=== PATIENT | male | born 1945 | race Caucasian/White ===

== ENCOUNTER 2016-04-05 14:37 | Inpatient (IN) | payer OTHER ==
[~2016-04-05] VITALS: Ht 185.4 cm; Wt 69.6 kg
[2016-04-05] MEDS ORDERED: SODIUM CHLORIDE 0.9% 1000ML 250 ML IV STA (15:10)
[2016-04-05] MEDS ORDERED: SODIUM CHLORIDE 0.9% 1000ML 1,000 ML IV STA ×2 (15:10→15:54)
[2016-04-05] MEDS ORDERED: FLM4 PO (15:14)
[2016-04-05] MEDS ORDERED: TRAM-10 PO (15:14)
[2016-04-05] MEDS ORDERED: DABI1CAP PO (15:14)
[2016-04-05] MEDS ORDERED: DOCU-94 PO (15:16)
--- NOTE | 2016-04-05 15:45 | DIAGNOSTIC IMAGING REPORT ---
CHEST ONE VIEW PORTABLE CLINICAL HISTORY: Chest pain. Confusion. Cancer. COMPARISON STUDY: Chest CT March 22, 2016. FINDINGS: An anterior cervical spine fusion is incidentally noted. The dominant right upper lobe mass, measuring approximately 8.9 cm, is similar to CT of March 22, 2016. Associated rib involvement is better depicted on that exam. A 4.2 cm right lower lobe mass is also better depicted on prior exam. Mild left basilar opacity favors atelectasis. There is no consolidation to suggest pneumonia. There is no pneumothorax or evidence of pulmonary edema. Cardiomediastinal silhouette is stable. Mild mediastinal widening as well as right hilar fullness is due to lymphadenopathy which is better depicted on CT. IMPRESSION: 1. No significant change in the right upper and lower lobe lung masses since CT of March 22, 2016. These are highly suggestive of lung cancer. 2. No change in mediastinal widening and right hilar fullness due to lymphadenopathy, better depicted on prior CT. Electronically signed by: Chris Pimentel M.D. 04/05/2016 3:43 PM
[2016-04-05 15:49] LABS: BASO % 0.1 %; BASO ABS # 0.02 K/uL (0-0.2); EOS % 1.9 %; HEMATOCRIT 26.7 % (42-52); IG% 0.3 %; LYMPH % 6.6 %; LYMPH ABS # 1.17 K/uL (1.2-3.4); MEAN CELL VOLUME 92.4 fL (80-100); MEAN CORPUSCULAR HEMOGLOBIN 29.4 pg (25-34); MEAN CORPUSCULAR HGB CONC 31.8 g/dl (32-36); MEAN PLATELET VOLUME 9.7 fL (7.4-10.4); MONO % 7.2 %; NEUT % 83.9 %; PLATELET COUNT 373 K/uL (130-400); RED BLOOD COUNT 2.89 M/uL (4.7-6.1); WHITE BLOOD COUNT 17.73 K/uL (4.8-10.8)
[2016-04-05 15:56] LABS: INR 1.3 (0.9-1.1); PROTHROMBIN TIME (PATIENT) 13.8 SECONDS (9.0-12.0)
[2016-04-05 16:02] LABS: POINT OF CARE TROPONIN I 0.02 ng/ml (0-0.045)
[2016-04-05 16:06] LABS: CALCIUM 8.8 mg/dl (8.5-10.1); CREATININE 1.2 mg/dl (0.60-1.40); POTASSIUM 3.6 mmol/L (3.5-5.1)
[2016-04-05 16:16] LABS: CKMB/CK RATIO 2.2 (0-3.0); THYROID STIMULATING HORMONE 2.02 uIu/ml (0.300-4.500)
[2016-04-05 16:17] LABS: COMPLETE YES; HYPOCHROMIA PRESENT; STOMATOCYTE 1+
[2016-04-05] MEDS ORDERED: ONDANSETRON INJ 2 MG/ML 2 ML VIAL IV STA (16:45)
[2016-04-05] MEDS ORDERED: MoRPHine SULFATE 2 MG/ML CARP IV STA (16:45)
[2016-04-05] MEDS ORDERED: OPTIRAY 320 IV PRN (16:45)
--- NOTE | 2016-04-05 18:19 | DIAGNOSTIC IMAGING REPORT ---
CHEST CTA for PULMONARY ARTERIES CT DOSE: 281.10 mGy.cm HISTORY: Chest pain dyspnea TECHNIQUE: Multiaxial CT images of the chest were performed following the intravenous administration of contrast to evaluate the pulmonary arteries. Maximal intensity projection images were also obtained. COMPARISON STUDY: 03/22/2016 FINDINGS: Study is considered negative for pulmonary embolus. Pulmonary vascular enhances uniformly. The right hemithoracic and right hilar masses produces described are again noted. These are perhaps minimally increased in size compared to the prior exam. Invasive characteristics to the lateral right chest wall are noted in approximately progressive as well. Destructive changes of the ribs are slightly progressive. Left hemithorax remains generally clear. Hepatic metastatic deposit is again noted. IMPRESSION: 1. Study is negative for pulmonary embolus. 2. Right hemithoracic masses with pleural invasive changes laterally. 3. All findings of the right hemithorax are slightly progressive compared to the prior study. 4. Mediastinal and hilar adenopathy slightly progressive. 5. Hepatic metastatic change as has been previously noted. Electronically signed by: Mihir Holloway M.D. 04/05/2016 6:17 PM
[2016-04-05] MEDS ORDERED: METOPROLOL TARTRATE 1 MG/ML VIAL IV STA (18:43)
[2016-04-05] MEDS ORDERED: NITROGLYCERIN 0.4 MG SL PER TAB CHARGE SL PRN (18:45)
[2016-04-05] MEDS ORDERED: ONDANSETRON INJ 2 MG/ML 2 ML VIAL IV PRN (18:45)
[2016-04-05] MEDS ORDERED: LEVALBUTEROL/IPRATROPIUM NEB INH PRN (18:45)
[2016-04-05] MEDS ORDERED: ACETAMINOPHEN IV 100 ML IV PRN (18:45)
[2016-04-05] MEDS ORDERED: LEVALBUTEROL 1.25MG/0.5ML NEB INH PRN (19:15)
[2016-04-05] MEDS ORDERED: IPRATROPIUM BROMIDE NEB SOLN 0.02% 2.5 ML VIAL INH PRN (19:15)
[2016-04-05 20:22] VITALS: BP 125/77; PULSE 110; TEMP 36.6; O2SAT 93; Ht 185.4 cm; Wt 69.6 kg
--- NOTE | 2016-04-05 20:35 | EMERGENCY ROOM VISIT NOTE ---
History Report prepared by Vandana: Tiffanie Harley Under the Supervision of: Dr. Dennis Acosta M.D. First contact with patient: 14:59 Chief Complaint: CHEST PAIN Stated Complaint: CANCER,SOB,CONFUSION,CHEST PAIN Nursing Triage Summary: pt c/o trouble hearing and confused started 1 week ago. scheduled for lung biopsy tomorrow here. sob and chest pain weakness in leg unable to walk trouble urinating. History of Present Illness The patient is a 70 year old male who presents to the Emergency Room with complaints of intermittent chest pain for the past 1-2 weeks. He rates his pain as a 7/10. He is feeling more short of breath than usual. He feels like his heart is racing. The patient also notes a cough. He has been prescribed tramadol for pain but family does not think that he is taking it on a regular basis. Family states that today the patient was much more confused. He was having a hard time urinating and they note decreased fluid intake. The patient has a personal history of atrial fibrillation and a chest mass. He is scheduled for a biopsy of this mass tomorrow. No trauma or injury. Source of History: patient, family Onset: 1-2 weeks ago Position: chest Symptom Intensity: 7/10 Quality: other (racing) Timing: intermittent Associated Symptoms: + SOB, + cough, + urinary symptoms Note: Family notes confusion and decreased fluid intake. Review of Systems See HPI for pertinent positives & negatives. A total of 10 systems reviewed and were otherwise negative. Past Medical & Surgical Medical Problems: (1) Atrial fibrillation (2) DVT (deep venous thrombosis) (3) Hypertension (4) Metastatic lung carcinoma (5) Multifocal atrial tachycardia (6) Solitary pulmonary nodule Old medical records were reviewed. Nurse's notes were reviewed and I agree with. He does have a history of some sort of arrhythmia that was ablated He is on Pradaxa but has been holding it as he has a biopsy scheduled with Dr. Hassan tomorrow Family History FHx: cancer Social History Smoking Status: Former Smoker Alcohol Use: none Marital Status: Housing Status: lives with significant other Occupation Status: retired Current/Historical Medications Scheduled Dabigatran Etexilate Mesylate (Pradaxa), 75 MG PO BID Tamsulosin HCl (Tamsulosin HCl), 0.4 MG PO QAM Scheduled PRN Docusate Sodium (Colace), 1 CAP PO DIRECTED PRN for PRN Tramadol (Ultram), 50 MG PO Q8H PRN for Pain Allergies Coded Allergies: No Known Allergies (Unverified , 04/05/16) Physical Exam Vital Signs Date Time Temp Pulse Resp B/P Pulse Ox O2 Delivery O2 Flow Rate FiO2 04/05/16 19:02 98 30 92 04/05/16 19:00 128/90 04/05/16 19:00 143 122/88 04/05/16 18:58 122/88 04/05/16 18:57 136 26 04/05/16 18:52 138 23 04/05/16 18:47 140 24 04/05/16 18:46 122/80 04/05/16 17:32 135 04/05/16 17:27 143 04/05/16 17:22 142 04/05/16 17:17 169 18 04/05/16 17:12 140 24 04/05/16 17:07 136 29 04/05/16 17:02 142 19 04/05/16 16:57 136 21 04/05/16 16:52 143 22 04/05/16 16:47 131 15 04/05/16 16:42 129 30 04/05/16 16:37 143 41 04/05/16 16:32 142 29 04/05/16 16:29 149/118 04/05/16 16:27 129 45 04/05/16 16:22 139 25 98 04/05/16 16:17 145 22 95 04/05/16 16:17 36.9 137 23 112/82 97 Room Air 04/05/16 16:12 131 25 99 04/05/16 16:07 130 30 88 04/05/16 16:02 137 23 97 Room Air 04/05/16 15:59 112/82 04/05/16 15:57 131 43 90 Room Air 04/05/16 15:52 134 20 93 Room Air 04/05/16 15:47 125 27 91 Room Air 04/05/16 15:42 125 33 97 04/05/16 15:37 134 32 98 04/05/16 15:32 140 31 96 04/05/16 15:29 138/82 04/05/16 15:27 103 20 92 04/05/16 15:22 128 24 97 04/05/16 15:17 125 24 98 04/05/16 15:12 133 23 96 04/05/16 15:10 142 04/05/16 15:08 99 Room Air 04/05/16 15:07 137 28 98 04/05/16 15:01 142/81 04/05/16 14:46 36.9 82 18 116/70 99 Room Air Physical Exam General: Well developed well nourished chronically ill appearing older male in no acute distress, breathing comfortably on room air. Normal speech, hard of hearing. HEENT: Normal cephalic atraumatic. Pupils are equal round and reactive to light. Sclerae anicteric.. Extraocular movements are intact. Oropharynx is pink with moist mucous membranes. No swelling of the mouth lips or tongue. Neck: Supple with a midline trachea. No meningeal signs or stiffness, no JVD or bruits. No Stridor. Chest: Wheezes in the bases bilaterally. No rhonchi. Mildly tachypneic. Heart: Irregularly irregular in the 130s. Abdomen: Soft nontender, nondistended without rebound guarding or rigidity. Extremities: No cyanosis clubbing or edema. No calf tenderness or assymetry Spine/Back. Non tender to palpation. No CVA tenderness Skin: Good turgor without rashes. Neurologic exam: Cranial nerves two through 12 are intact. Motor and sensation are intact and symmetrical throughout. Medical Decision & Procedures ER Provider Diagnostic Interpretation: Radiology results as stated below per my review and radiologist interpretation: CHEST ONE VIEW PORTABLE CLINICAL HISTORY: Chest pain. Confusion. Cancer. COMPARISON STUDY: Chest CT March 22, 2016. FINDINGS: An anterior cervical spine fusion is incidentally noted. The dominant right upper lobe mass, measuring approximately 8.9 cm, is similar to CT of March 22, 2016. Associated rib involvement is better depicted on that exam. A 4.2 cm right lower lobe mass is also better depicted on prior exam. Mild left basilar opacity favors atelectasis. There is no consolidation to suggest pneumonia. There is no pneumothorax or evidence of pulmonary edema. Cardiomediastinal silhouette is stable. Mild mediastinal widening as well as right hilar fullness is due to lymphadenopathy which is better depicted on CT. IMPRESSION: 1. No significant change in the right upper and lower lobe lung masses since CT of March 22, 2016. These are highly suggestive of lung cancer. 2. No change in mediastinal widening and right hilar fullness due to lymphadenopathy, better depicted on prior CT. Electronically signed by: Chris Pimentel M.D. 04/05/2016 3:43 PM CHEST CTA for PULMONARY ARTERIES CT DOSE: 281.10 mGy.cm HISTORY: Chest pain dyspnea TECHNIQUE: Multiaxial CT images of the chest were performed following the intravenous administration of contrast to evaluate the pulmonary arteries. Maximal intensity projection images were also obtained. COMPARISON STUDY: 03/22/2016 FINDINGS: Study is considered negative for pulmonary embolus. Pulmonary vascular enhances uniformly. The right hemithoracic and right hilar masses produces described are again noted. These are perhaps minimally increased in size compared to the prior exam. Invasive characteristics to the lateral right chest wall are noted in approximately progressive as well. Destructive changes of the ribs are slightly progressive. Left hemithorax remains generally clear. Hepatic metastatic deposit is again noted. IMPRESSION: 1. Study is negative for pulmonary embolus. 2. Right hemithoracic masses with pleural invasive changes laterally. 3. All findings of the right hemithorax are slightly progressive compared to the prior study. 4. Mediastinal and hilar adenopathy slightly progressive. 5. Hepatic metastatic change as has been previously noted. Electronically signed by: Mihir Holloway M.D. 04/05/2016 6:17 PM Laboratory Results 04/05/16 15:35 Red Blood Count 2.89, Mean Corpuscular Volume 92.4, Mean Corpuscular Hemoglobin 29.4, Mean Corpuscular Hemoglobin Concent 31.8, Mean Platelet Volume 9.7, Neutrophils (%) (Auto) 83.9, Lymphocytes (%) (Auto) 6.6, Monocytes (%) (Auto) 7.2, Eosinophils (%) (Auto) 1.9, Basophils (%) (Auto) 0.1, Neutrophils # (Auto) 14.87, Lymphocytes # (Auto) 1.17, Monocytes # (Auto) 1.28, Eosinophils # (Auto) 0.34, Basophils # (Auto) 0.02 04/05/16 15:35 Test 04/05/16 15:35 04/05/16 15:44 White Blood Count 17.73 K/uL (4.8-10.8) Red Blood Count 2.89 M/uL (4.7-6.1) Hemoglobin 8.5 g/dL (14.0-18.0) Hematocrit 26.7 % (42-52) Mean Corpuscular Volume 92.4 fL (80-100) Mean Corpuscular Hemoglobin 29.4 pg (25-34) Mean Corpuscular Hemoglobin Concent 31.8 g/dl (32-36) Platelet Count 373 K/uL (130-400) Mean Platelet Volume 9.7 fL (7.4-10.4) Neutrophils (%) (Auto) 83.9 % Lymphocytes (%) (Auto) 6.6 % Monocytes (%) (Auto) 7.2 % Eosinophils (%) (Auto) 1.9 % Basophils (%) (Auto) 0.1 % Neutrophils # (Auto) 14.87 K/uL (1.4-6.5) Lymphocytes # (Auto) 1.17 K/uL (1.2-3.4) Monocytes # (Auto) 1.28 K/uL (0.11-0.59) Eosinophils # (Auto) 0.34 K/uL (0-0.5) Basophils # (Auto) 0.02 K/uL (0-0.2) RDW Standard Deviation 53.6 fL (36.4-46.3) RDW Coefficient of Variation 15.9 % (11.5-14.5) Immature Granulocyte % (Auto) 0.3 % Immature Granulocyte # (Auto) 0.05 K/uL (0.00-0.02) Hypochromasia PRESENT Stomatocytes 1+ Prothrombin Time 13.8 SECONDS (9.0-12.0) Prothromb Time International Ratio 1.3 (0.9-1.1) Activated Partial Thromboplast Time 26.4 SECONDS (21.0-31.0) Partial Thromboplastin Ratio 1.0 Anion Gap 10.0 mmol/L (3-11) Est Creatinine Clear Calc Drug Dose 59.1 ml/min Estimated GFR () 70.6 Estimated GFR (Non- 60.9 BUN/Creatinine Ratio 18.0 (10-20) Calcium Level 8.8 mg/dl (8.5-10.1) Total Creatine Kinase 92 U/L (39-308) Creatine Kinase MB 2.0 ng/ml (0.5-3.6) Creatine Kinase MB Ratio 2.2 (0-3.0) Thyroid Stimulating Hormone (TSH) 2.020 uIu/ml (0.300-4.500) Bedside Troponin I 0.020 ng/ml (0-0.045) DT-Ehl-R-Type Natriuretic Peptide 6809 pg/ml (0-900) Laboratory studies as stated above per my review. Medications Administered Medications (Trade) Dose Ordered Sig/Juan Alberto Route Start Time Stop Time Status Last Admin Dose Admin Sodium Chloride 250 ml @ 999 mls/hr Q16M STAT IV 04/05/16 15:10 04/05/16 15:25 DC 04/05/16 15:52 999 MLS/HR Sodium Chloride 1,000 ml @ 100 mls/hr Q10H STAT IV 04/05/16 15:10 04/05/16 20:05 DC 04/05/16 15:52 100 MLS/HR Sodium Chloride (Nss 1000ml) 1,000 ml @ 999 mls/hr Q1H1M STAT IV 04/05/16 15:54 04/05/16 16:54 DC 04/05/16 15:58 999 MLS/HR Ondansetron HCl (Zofran Inj) 4 mg NOW STAT IV 04/05/16 16:45 04/05/16 16:47 DC 04/05/16 16:56 4 MG Morphine Sulfate (MoRPHine SULFATE INJ) 2 mg NOW STAT IV 04/05/16 16:45 04/05/16 16:47 DC 04/05/16 16:56 2 MG Metoprolol Tartrate (Lopressor Iv) 5 mg NOW STAT IV 04/05/16 18:43 04/05/16 18:44 DC 04/05/16 19:00 5 MG ECG Indication: chest pain Rate (beats per minute): 146 Rhythm: atrial fibrillation (with RVR) Findings: nonspecific-ST abn, PVC (occasional) Comparison ECG Date: no prior available ED Course 1459: Past medical records reviewed. The patient was evaluated in room B11A, and a complete history and physical examination were performed. 1510: NSS 1000 ml @ 100 mls/hr IV, NSS 250 ml @ 999 mls/hr IV 1554: NSS 1000 ml @ 999 mls/hr IV 1556: I reassessed the patient at this time. He is doing well. 1624: I reevaluated the patient. He is doing well and his heart rate seems to be coming down. 164: I reassessed the patient at this time. He is still having some pain. 164: Morphine sulfate 2 mg IV, Zofran 4 mg IV 174: I reevaluated the patient and updated him and his family on the treatment plan. 181: The patient is resting comfortably. 183: I reassessed the patient at this time. I discussed the results and treatment plan with the patient and his family. I answered all pertaining questions that they had. They expressed understanding and verbalized agreement. 184: I spoke with Dr. Winters. We discussed the patients results and treatment plan. The patient will be evaluated by the [facility] for further management. 1842: Lopressor 5 mg IV 1931: I reassessed the patient. He is resting comfortably and feeling better after receiving his Lopressor. Medical Decision Differential diagnoses includes atrial fibrillation, CHF, dehydration, pulmonary process. This patient comes in as described above. He was placed in room B 11. Here for treatment and evaluation of shortness of breath and chest pain. He does have a history of aggressive lung cancer that is metastatic. He is scheduled for abiopsy tomorrow. He is non-hypoxemic initially is tachycardic. He does look a little bit dry. He's also had some urinary symptoms. IV access established and he was hydrated with a 1 L IV normal saline bolus. Unfortunately, there are very limited records here. I do not know if he is in A. fib at baseline. His EKG does appear to be A. fib, there are some nonspecific ST abnormalities. His troponin is negative chest x-ray shows masses consistent with cancer but no CHF. He was given IV morphine and IV Zofran for pain as he is some back pain with moving. I did a CAT scan to make sure he has no PE and has no evidence of PE. His heart rate seemed be coming down in the 120s to 130s, however with to being persistently elevated, I did give him Lopressor 5 mg IV this came down to low 100s any seemed more comfortably as well. He also seemed having trouble urinating and I offered to place a Queen catheter but he declined and was able to urinate. His white count is elevated and he's anemic at 9. He has nothing else to suggest infection or sepsis at this point. I think is more related to his underlying lung process. I do think he needs to be admitted for hydration, cardiac evaluation, rate control and further treatment and evaluation. I did consult Dr. Smith, who saw him in the ER and will admit him for these measures. Consults Time Called: 1831 Consulting Physician: Dr. Winters Returned Call: [phone] Winters. We discussed the patients results and treatment plan. The patient will be evaluated by the [facility] for further management. Impression Primary Impression: Rapid atrial fibrillation Additional Impressions: Dehydration, Lung cancer Scribe Attestation The scribe's documentation has been prepared under my direction and personally reviewed by me in its entirety. I confirm that the note above accurately reflects all work, treatment, procedures, and medical decision making performed by me. Departure Information Dispostion Being Evaluated By Hospitalist Nico Luke PA-C (PCP) Patient Instructions A Signature Page, My [facility]
--- NOTE | 2016-04-05 20:46 | History and Physical ---
History & Physical Date & Time of Service: Apr 05, 2016 at 20:24 Chief Complaint: Metastatic Lung Carcinoma, Multifocal Atrial Primary Care Physician: Nico Peres PA-C History of Present Illness Source: patient, family Past Medical/Surgical History Medical Problems: (1) Atrial fibrillation Status: Chronic (2) DVT (deep venous thrombosis) Status: Resolved (3) Hypertension Status: Chronic (4) Solitary pulmonary nodule Status: Chronic Family History FHx: cancer Social History Smoking Status: Former Smoker Smokeless Tobacco Use: No Alcohol Use: none Drug Use: none Housing status: lives with family Occupational Status: retired Multi-Drug Resistant Organisms History of MDRO: No Allergies Coded Allergies: No Known Allergies (Unverified , 04/05/16) Home Medications Scheduled Dabigatran Etexilate Mesylate (Pradaxa), 75 MG PO BID Tamsulosin HCl (Tamsulosin HCl), 0.4 MG PO QAM Scheduled PRN Docusate Sodium (Colace), 1 CAP PO DIRECTED PRN for PRN Tramadol (Ultram), 50 MG PO Q8H PRN for Pain Review of Systems The patient denies chest pain, palpitations, lower extremity swelling, vision change, hearing change, sore throat, fevers, chills, sweats, weight change, nausea, vomiting, abdominal pain, pelvic pain, blood in urine or stool, dysuria , urinary frequency or urgency, headache, rash, abnormal bruising or bleeding, imbalance, focal weakness, back or neck pain, night sweats, or allergy symptoms. The review of systems is otherwise negative other than for that already noted above, and at least 10 systems have been reviewed. Physical Exam Vital Signs Date Time Temp Pulse Resp B/P Pulse Ox O2 Delivery O2 Flow Rate FiO2 04/05/16 19:40 36.9 107 30 111/69 96 04/05/16 19:12 107 30 04/05/16 19:10 102 04/05/16 19:09 36.9 109 22 111/69 96 Room Air 04/05/16 19:07 109 41 95 04/05/16 19:06 111/69 04/05/16 19:04 119/70 04/05/16 19:02 98 30 92 04/05/16 19:00 128/90 04/05/16 19:00 143 122/88 04/05/16 18:58 122/88 04/05/16 18:57 136 26 04/05/16 18:52 138 23 04/05/16 18:47 140 24 04/05/16 18:46 122/80 04/05/16 17:32 135 04/05/16 17:27 143 04/05/16 17:22 142 04/05/16 17:17 169 18 04/05/16 17:12 140 24 04/05/16 17:07 136 29 04/05/16 17:02 142 19 04/05/16 16:57 136 21 04/05/16 16:52 143 22 04/05/16 16:47 131 15 04/05/16 16:42 129 30 04/05/16 16:37 143 41 04/05/16 16:32 142 29 04/05/16 16:29 149/118 04/05/16 16:27 129 45 04/05/16 16:22 139 25 98 04/05/16 16:17 145 22 95 04/05/16 16:17 36.9 137 23 112/82 97 Room Air 04/05/16 16:12 131 25 99 04/05/16 16:07 130 30 88 04/05/16 16:02 137 23 97 Room Air 04/05/16 15:59 112/82 04/05/16 15:57 131 43 90 Room Air 04/05/16 15:52 134 20 93 Room Air 04/05/16 15:47 125 27 91 Room Air 04/05/16 15:42 125 33 97 04/05/16 15:37 134 32 98 04/05/16 15:32 140 31 96 04/05/16 15:29 138/82 04/05/16 15:27 103 20 92 04/05/16 15:22 128 24 97 04/05/16 15:17 125 24 98 04/05/16 15:12 133 23 96 04/05/16 15:10 142 04/05/16 15:08 99 Room Air 04/05/16 15:07 137 28 98 04/05/16 15:01 142/81 04/05/16 14:46 36.9 82 18 116/70 99 Room Air The patient is awake, appears chronically ill, lying in bed and in mild to moderate respiratory distress. HEENT--PERRL, EOMI, mucous membranes and oropharynx dry. Neck--supple, no JVD or bruits, thyroid normal, trachea midline, no adenopathy. Heart--tachycardic, regularly irregular, frequent extra beats, no murmurs, rubs or gallops. Lungs--decreased breath sounds throughout, rhonchi and wheezes bilaterally, mild to moderate respiratory distress, no accessory muscle use. Abdomen--normal bowel sounds and soft, nontender and nondistended, no hernias or masses, no organomegaly. Extremities--no cyanosis, or clubbing. There is bilaterally 1+ pitting Edema. There are good distal pulses b/l. Dermatologic--normal skin turgor, normal color, warm and dry, no abnormal lymph nodes, no rash. Neurologic--cranial nerves II through XII grossly intact. Psychiatric--normal affect. Diagnostics Laboratory Results Results Past 24 Hours Test 04/05/16 15:35 04/05/16 15:44 Range/Units White Blood Count 17.73 4.8-10.8 K/uL Red Blood Count 2.89 4.7-6.1 M/uL Hemoglobin 8.5 14.0-18.0 g/dL Hematocrit 26.7 42-52 % Mean Corpuscular Volume 92.4 80-100 fL Mean Corpuscular Hemoglobin 29.4 25-34 pg Mean Corpuscular Hemoglobin Concent 31.8 32-36 g/dl Platelet Count 373 130-400 K/uL Mean Platelet Volume 9.7 7.4-10.4 fL Neutrophils (%) (Auto) 83.9 % Lymphocytes (%) (Auto) 6.6 % Monocytes (%) (Auto) 7.2 % Eosinophils (%) (Auto) 1.9 % Basophils (%) (Auto) 0.1 % Neutrophils # (Auto) 14.87 1.4-6.5 K/uL Lymphocytes # (Auto) 1.17 1.2-3.4 K/uL Monocytes # (Auto) 1.28 0.11-0.59 K/uL Eosinophils # (Auto) 0.34 0-0.5 K/uL Basophils # (Auto) 0.02 0-0.2 K/uL RDW Standard Deviation 53.6 36.4-46.3 fL RDW Coefficient of Variation 15.9 11.5-14.5 % Immature Granulocyte % (Auto) 0.3 % Immature Granulocyte # (Auto) 0.05 0.00-0.02 K/uL Hypochromasia PRESENT Stomatocytes 1+ Prothrombin Time 13.8 9.0-12.0 SECONDS Prothromb Time International Ratio 1.3 0.9-1.1 Activated Partial Thromboplast Time 26.4 21.0-31.0 SECONDS Partial Thromboplastin Ratio 1.0 Sodium Level 137 136-145 mmol/L Potassium Level 3.6 3.5-5.1 mmol/L Chloride Level 98 98-107 mmol/L Carbon Dioxide Level 29 21-32 mmol/L Anion Gap 10.0 3-11 mmol/L Blood Urea Nitrogen 22 7-18 mg/dl Creatinine 1.20 0.60-1.40 mg/dl Est Creatinine Clear Calc Drug Dose 59.1 ml/min Estimated GFR () 70.6 Estimated GFR (Non- 60.9 BUN/Creatinine Ratio 18.0 10-20 Random Glucose 99 70-99 mg/dl Calcium Level 8.8 8.5-10.1 mg/dl Total Creatine Kinase 92 39-308 U/L Creatine Kinase MB 2.0 0.5-3.6 ng/ml Creatine Kinase MB Ratio 2.2 0-3.0 Thyroid Stimulating Hormone (TSH) 2.020 0.300-4.500 uIu/ml Bedside Troponin I 0.020 0-0.045 ng/ml IB-Jfl-P-Type Natriuretic Peptide 6809 0-900 pg/ml Microbiology Results 04/05/16 Blood Culture, Received Pending 04/05/16 Blood Culture, Received Pending Diagnostic Radiology Patient Name: ANDREW NOLEN Unit Number: [id number] Dictated: 04/05/161538 Transcribed: 04/05/161538 JA Printed Date/Time: [~ rep prt dt]/[~ rep prt tm] [~ rep ct labl] - [~ rep ct ivnm] [facility] [place] [place] [address] Dictated: 04/05/161538 Transcribed: 04/05/161538 JA Printed Date/Time: [~ rep prt dt]/[~ rep prt tm] [~ rep ct labl] - [~ rep ct ivnm] CHEST ONE VIEW PORTABLE CLINICAL HISTORY: Chest pain. Confusion. Cancer. COMPARISON STUDY: Chest CT March 22, 2016. FINDINGS: An anterior cervical spine fusion is incidentally noted. The dominant right upper lobe mass, measuring approximately 8.9 cm, is similar to CT of March 22, 2016. Associated rib involvement is better depicted on that exam. A 4.2 cm right lower lobe mass is also better depicted on prior exam. Mild left basilar opacity favors atelectasis. There is no consolidation to suggest pneumonia. There is no pneumothorax or evidence of pulmonary edema. Cardiomediastinal silhouette is stable. Mild mediastinal widening as well as right hilar fullness is due to lymphadenopathy which is better depicted on CT. IMPRESSION: 1. No significant change in the right upper and lower lobe lung masses since CT of March 22, 2016. These are highly suggestive of lung cancer. 2. No change in mediastinal widening and right hilar fullness due to lymphadenopathy, better depicted on prior CT. Electronically signed by: Chris Pimentel M.D. 04/05/2016 3:43 PM The status of this report is Signed. Draft = Not yet reviewed or approved by Radiologist. Signed = Reviewed and approved by Radiologist. <AttendingPhy></AttendingPhy> <FamilyPhy>Nico Peres PA-C</FamilyPhy> < PrimaryPhy>Nico Peres PA-C</PrimaryPhy> <UnitNumber>[id number]</ UnitNumber> <VisitNumber>[id number]</VisitNumber> <PatientName>ANDREW NOLEN</PatientName> <DateOfBirth>1945</DateOfBirth> <Location>[facility]</ Location> <ServiceDate>04/05/16</ServiceDate> <MNE>ESINDI</MNE> <OrderingPhy> Dennis Acosta M.D.</OrderingPhy> <OrderingPhyMNE>f rep ord dr carbajal</ OrderingPhyMNE> <DictatingPhyMNE>f rep dict dr carbajal</DictatingPhyMNE> <CCListMNE> f rep ct shruthie</CCListMNE> <AdmittingPhyMNE>f pt admit dr carbajal</AdmittingPhyMNE> < AttendingPhyMNE>f pt attend dr carbajal</AttendingPhyMNE> <ConsultingPhyMNE>f pt consult dr carbajal</ConsultingPhyMNE> <FamilyPhyMNE>f pt fam dr carbajal</FamilyPhyMNE> <OtherPhyMNE>f pt other dr carbajal</OtherPhyMNE> < PrimaryPhyMNE>f pt prim care dr carbajal</PrimaryPhyMNE> <ReferringPhyMNE>f pt referring dr carbajal</ReferringPhyMNE> Patient Name: ANDREW NOLEN Unit Number: [id number] Dictated: 04/05/161808 Transcribed: 04/05/161808 MS Printed Date/Time: [~ rep prt dt]/[~ rep prt tm] [~ rep ct labl] - [~ rep ct ivnm] [facility] Radiology Department [place] [id number] Dictated: 04/05/161808 Transcribed: 04/05/161808 MS Printed Date/Time: [~ rep prt dt]/[~ rep prt tm] [~ rep ct labl] - [~ rep ct ivnm] [~ rep ct add3]] CHEST CTA for PULMONARY ARTERIES CT DOSE: 281.10 mGy.cm HISTORY: Chest pain dyspnea TECHNIQUE: Multiaxial CT images of the chest were performed following the intravenous administration of contrast to evaluate the pulmonary arteries. Maximal intensity projection images were also obtained. COMPARISON STUDY: 03/22/2016 FINDINGS: Study is considered negative for pulmonary embolus. Pulmonary vascular enhances uniformly. The right hemithoracic and right hilar masses produces described are again noted. These are perhaps minimally increased in size compared to the prior exam. Invasive characteristics to the lateral right chest wall are noted in approximately progressive as well. Destructive changes of the ribs are slightly progressive. Left hemithorax remains generally clear. Hepatic metastatic deposit is again noted. IMPRESSION: 1. Study is negative for pulmonary embolus. 2. Right hemithoracic masses with pleural invasive changes laterally. 3. All findings of the right hemithorax are slightly progressive compared to the prior study. 4. Mediastinal and hilar adenopathy slightly progressive. 5. Hepatic metastatic change as has been previously noted. Electronically signed by: Mihir Holloway M.D. 04/05/2016 6:17 PM The status of this report is Signed. Draft = Not yet reviewed or approved by Radiologist. Signed = Reviewed and approved by Radiologist. <AttendingPhy></AttendingPhy> <FamilyPhy>Nico Peres PA-C</FamilyPhy> < PrimaryPhy>Nico Peres PA-C</PrimaryPhy> <UnitNumber>[id number]</ UnitNumber> <VisitNumber>[id number]</VisitNumber> <PatientName>ANDREW NOLEN</PatientName> <DateOfBirth>1945</DateOfBirth> <Location>[facility]</ Location> <ServiceDate>04/05/16</ServiceDate> <MNE>ESINDI</MNE> <OrderingPhy> Dennis Acosta M.D.</OrderingPhy> <OrderingPhyMNE>f rep ord dr carbajal</ OrderingPhyMNE> <DictatingPhyMNE>f rep dict dr carbajal</DictatingPhyMNE> <CCListMNE> f rep ct raven</CCListMNE> <AdmittingPhyMNE>f pt admit dr carbajal</AdmittingPhyMNE> < AttendingPhyMNE>f pt attend dr carbajal</AttendingPhyMNE> <ConsultingPhyMNE>f pt consult dr carbajal</ConsultingPhyMNE> <FamilyPhyMNE>f pt fam dr carbajal</FamilyPhyMNE> <OtherPhyMNE>f pt other dr carbajal</OtherPhyMNE> < PrimaryPhyMNE>f pt prim care dr carbajal</PrimaryPhyMNE> <ReferringPhyMNE>f pt referring dr carbajal</ReferringPhyMNE> EKG EKG shows MAT at a rate of 145, with ST depressions in leads V3 and V4. Impression Assessment and Plan MAT with ST depressions in leads V3 and V4--the patient will be placed on Lopressor 5 mg IV every 4 hours with hold parameters. He has also received dosing of digoxin 0.25 mg IV in the emergency department. He'll be followed on the telemetry unit, for serial cardiac enzymes, cardiac rhythm monitoring, and a 2-D echocardiogram with Dopplers. Anemia--his hemoglobin upon admission was 8.5. Due to the accompanying MAT and hypoxia, will transfuse 1 unit of packed RBCs to target hemoglobin to be approximately 10. Metastatic lung cancer--patient had been scheduled for lung biopsy as an outpatient by Dr. Hassan for tomorrow. Dr. Hassan will be consulted to see the patient for potential inpatient biopsy. His Pradaxa 75 mg by mouth twice a day has been on hold for the scheduled outpatient biopsy, and will be continued be held as an inpatient. He'll be made nothing by mouth except medications after midnight. BPH--continue tamsulosin 0.4 mg by mouth every morning. Level of Care Telemetry Advanced Directives Existing Advance Directive: No Existing Living Will: No Existing Power of Marker Hand: No Resuscitation Status FULL RESUSCITATION VTE Prophylaxis VTE Risk Assessment Done? Y/N: Yes Risk Level: Moderate Given or contraindicated: SCD's
[2016-04-05] MEDS ORDERED: INFLUENZA VIRUS QUAD VACCINE 0.5 ML SYR IM. ONE (21:00)
[2016-04-05] MEDS ORDERED: PNEUMOCOCCAL POLYSACCHARIDES 25 MCG/0.5 ML VIAL/SYR IM. ONE (21:00)
[2016-04-05] MEDS ORDERED: PNEUMOCOCCAL ADMINISTRATION CHARGE ONE (21:00)
[2016-04-05] MEDS ORDERED: INFLUENZA ADMINISTRATION CHARGE ONE (21:00)
[2016-04-05 21:43] LABS: CKMB/CK RATIO 2.9 (0-3.0)
[2016-04-05] MEDS: CEFTRIAXONE SOD INJ 1 GM in DEXTROSE 5% ADD-VANTAGE 50ML 50 ML IV SCH (21:54)
[2016-04-05] MEDS: NSS + 20MEQ KCL 1000ML 1,000 ML IV SCH (21:54)
[2016-04-05] MEDS: LEVOFLOXACIN / D5W 500 MG in PREMIXED IN D5W 100 ML IV SCH (21:55)
[2016-04-06] VITALS (13 sets, daily range): BP systolic 120–154; BP diastolic 68–93; PULSE 99–129; TEMP 36.2–36.6; O2SAT 93–100
[2016-04-06] MEDS: METOPROLOL TARTRATE 1 MG/ML VIAL IV. SCH ×5 (00:14→18:26)
[2016-04-06 04:46] LABS: BASO % 0.1 %; BASO ABS # 0.01 K/uL (0-0.2); EOS % 1.9 %; HEMATOCRIT 26.9 % (42-52); IG% 0.4 %; LYMPH % 6.3 %; LYMPH ABS # 1.14 K/uL (1.2-3.4); MEAN CELL VOLUME 92.1 fL (80-100); MEAN CORPUSCULAR HEMOGLOBIN 29.1 pg (25-34); MEAN CORPUSCULAR HGB CONC 31.6 g/dl (32-36); MEAN PLATELET VOLUME 9.4 fL (7.4-10.4); MONO % 7.3 %; PLATELET COUNT 346 K/uL (130-400); RED BLOOD COUNT 2.92 M/uL (4.7-6.1); WHITE BLOOD COUNT 17.98 K/uL (4.8-10.8)
[2016-04-06 05:07] LABS: COMPLETE YES
[2016-04-06 05:25] LABS: CALCIUM 8.2 mg/dl (8.5-10.1); CKMB/CK RATIO 3.1 (0-3.0); MAGNESIUM 2.2 mg/dl (1.8-2.4); POTASSIUM 4.2 mmol/L (3.5-5.1)
[2016-04-06 06:45] LABS: URINE APPEARANCE CLOUDY (CLEAR); URINE BILIRUBIN NEG (NEG); URINE COLOR DK YELLOW; URINE EPITHELIAL CELL AUTO >30 /lpf (0-5); URINE NITRITE NEG (NEG); URINE SPECIFIC GRAVITY 1.042 (1.000-1.030); UROBILINOGEN POS (NEG)
[2016-04-06 06:47] LABS: MANUAL MICROSCOPIC REQUIRED? NO; REVIEW REQ? YES
[2016-04-06] MEDS: NSS + 20MEQ KCL 1000ML 1,000 ML IV SCH (07:24)
--- NOTE | 2016-04-06 10:49 | Clinical Documentation Query ---
CLINICAL DOCUMENTATION QUERY Query #1/2 In your clinical opinion is this patient being managed for: ( X ) Suspected Pneumonia treated with IV Levofloxacin and IV Ceftriaxone. ( ) Other explanation of clinical findings (Please Explain) ( ) Unable to determine (Please Define) ( ) Need to Discuss ( ) Not Agree The medical record reflects the following clinical findings, treatment, and risk factors. Clinical Indicators: Presents tachycardic 130's and with tachypnea 28-45. Treatment: Started on IV Levofloxacin, IV Ceftriaxone, Risk Factors: Age, underlying cancer, Query #2/2 In your clinical opinion is this patient being managed for: ( X ) Metabolic encephalopathy in setting metastatic lung cancer with mets to brain. ( ) Other explanation of clinical findings (Please Explain) ( ) Unable to determine (Please Define) ( ) Need to Discuss ( ) Not Agree The medical record reflects the following clinical findings, treatment, and risk factors. Clinical Indicators: Confusion, pulling on lines and IV's, Treatment: IVF's, frequent reorientation, IV antibiotics, Risk Factors:Age, ?infection, cancer Please clarify and document your clinical opinion in the progress notes and discharge summary. Terms such as "probable", "suspected", "likely", "questionable", "possible", or "still to be ruled out" are acceptable. IF IN AGREEMENT, YOU MUST DOCUMENT ABOVE DIAGNOSTIC STATEMENT IN DAILY PROGRESS NOTES AND DISCHARGE SUMMARY. This document is not part of the patient's record. Thank You, Emmanuel Ortega, RN [phone]
--- NOTE | 2016-04-06 11:21 | DIAGNOSTIC IMAGING REPORT ---
CT-guided lung biopsy GUIDANCE NEEDLE PLACEMENT CLINICAL HISTORY: lung biopsy lung mass TECHNIQUE: Following description of procedure and informed consent, sequential passes were made with 20-gauge Felipe needle. This is followed by a 20-gauge core biopsy. COMPARISON STUDY: CT chest dated 04/05/2016 FINDINGS: Successful fine-needle aspiration and core biopsy of a pleural-based mass right upper lung IMPRESSION: Successful fine-needle aspiration and core biopsy of a pleural-based mass right upper lung. No complications noted. Electronically signed by: Mihir Holloway M.D. 04/06/2016 11:19 AM
--- NOTE | 2016-04-06 12:01 | ECHOCARDIOGRAM REPORT ---
*NOTICE TO RECEIVING [employer] This information is strictly Confidential and protected under [place] law. [place] law prohibits you from making any further disclosure of this information unless further disclosure is expressly permitted by the written consent of the person to whom it pertains or is authorized by law. A general authorization for the release of medical or other information is not sufficient for this purpose. Hospital accepts no responsibility if the information is made available to any other person, INCLUDING THE PATIENT. Interpretation Summary * Name: ANDREW NOLEN Study Date: 04/06/2016 07:29 AM BP: 133/68 mmHg * Patient Location: [facility]\S\N276\S\1 HR: 130 * : 1945 (M/d/yy) Gender: Male Height: 73 in * Age: 70 yrs Ethnicity: [place] Weight: 156 lb * Ordering Physician: Som Winters * Performed By: Radha Magana * * Reason For Study: MAT * BSA: 1.9 m2 * -- Conclusions -- * 1. Borderline dilated LV. Borderline concentric LVH. * 2. Mild to moderate global LV dsyfunction in the setting of atrial arrhythmia. LVEF 40-45%. * 3. Normal RV size and function. * 4. Mild mitral regurgitation * 5. Normal estimated RA and PA pressures. * 6. No prior studies for comparison. Procedure Details * A complete two-dimensional transthoracic echocardiogram was performed (2D, M-mode, Doppler and color flow Doppler). Left Ventricle * The left ventricle is borderline dilated. * There is borderline concentric left ventricular hypertrophy. * Ejection Fraction = 40-45%. * There is mild to moderate global hypokinesis of the left ventricle. Right Ventricle * The right ventricle is grossly normal size. * The right ventricular systolic function is qualitatively normal. Atria * The left atrium is mildly dilated. * The right atrium is borderline dilated. * No ASD detected; PFO is not assessed. Mitral Valve * The mitral valve is grossly normal. * There is no mitral valve stenosis. * There is mild mitral regurgitation. Tricuspid Valve * The tricuspid valve is not well visualized, but is grossly normal. * Tricuspid stenosis is absent. * There is trace tricuspid regurgitation. Aortic Valve * The aortic valve opens well. * No hemodynamically significant valvular aortic stenosis. * There is no significant aortic regurgitation. Pulmonic Valve * The pulmonary valve is inadequately visualized, but the Doppler data is adequate for interpretation. * Pulmonic stenosis is absent. * There is no significant pulmonary regurgitation. Great Vessels * The aortic root and proximal ascending aorta are normal sized. Pericardium/Pleural * There is no pericardial effusion. Great Vessels * Normal inferior vena cava size and collapsability with sniff indicates a normal right atrial pressure of 3 mmHg MMode 2D Measurements and Calculations IVSd 1.2 cm IVSs 1.4 cm LVIDd 5.5 cm LVIDs 4.4 cm LVPWd 1.0 cm LVPWs 1.8 cm IVS/LVPW 1.2 FS 20.9 % EDV(Teich) 149.8 ml ESV(Teich) 86.7 ml EF(Teich) 42.1 % EDV(cubed) 169.8 ml ESV(cubed) 83.9 ml EF(cubed) 50.6 % % IVS thick 19.8 % % LVPW thick 80.7 % LV mass(C)d 239.4 grams LV mass(C)dI 123.6 grams/m\S\2 LV mass(C)s 293.5 grams LV mass(C)sI 151.6 grams/m\S\2 SV(Teich) 63.1 ml SI(Teich) 32.6 ml/m\S\2 SV(cubed) 85.9 ml SI(cubed) 44.4 ml/m\S\2 EPSS 1.5 cm ACS 0.86 cm LA dimension 4.4 cm asc Aorta Diam 3.4 cm LVOT diam 2.2 cm LVOT area 4.0 cm\S\2 LVAd ap4 28.1 cm\S\2 LVLd ap4 7.6 cm EDV(MOD-sp4) 86.8 ml EDV(sp4-el) 87.9 ml LVAs ap4 21.5 cm\S\2 LVLs ap4 7.2 cm ESV(MOD-sp4) 53.8 ml ESV(sp4-el) 54.6 ml EF(MOD-sp4) 38.0 % EF(sp4-el) 37.9 % LVAd ap2 32.1 cm\S\2 LVLd ap2 7.6 cm EDV(MOD-sp2) 116.1 ml EDV(sp2-el) 114.3 ml LVAs ap2 23.4 cm\S\2 LVLs ap2 7.2 cm ESV(MOD-sp2) 64.1 ml ESV(sp2-el) 64.8 ml EF(MOD-sp2) 44.8 % EF(sp2-el) 43.3 % LVLd %diff 0.24 % EDV(MOD-bp) 100.3 ml LVLs %diff 0.34 % ESV(MOD-bp) 58.8 ml EF(MOD-bp) 41.3 % SV(MOD-sp4) 33.0 ml SI(MOD-sp4) 17.0 ml/m\S\2 SV(MOD-sp2) 52.0 ml SI(MOD-sp2) 26.9 ml/m\S\2 SV(MOD-bp) 41.5 ml SI(MOD-bp) 21.4 ml/m\S\2 SV(sp4-el) 33.3 ml SI(sp4-el) 17.2 ml/m\S\2 SV(sp2-el) 49.5 ml SI(sp2-el) 25.6 ml/m\S\2 Doppler Measurements and Calculations MV E max dwight 109.6 cm/sec MV V2 max 110.9 cm/sec MV max PG 4.9 mmHg MV V2 mean 51.6 cm/sec MV mean PG 1.5 mmHg MV V2 VTI 18.9 cm MVA(VTI) 2.8 cm\S\2 MV dec time 0.19 sec Ao V2 max 93.8 cm/sec Ao max PG 3.5 mmHg Ao max PG (full) 0.99 mmHg MALACHI(V,A) 3.4 cm\S\2 MLAACHI(V,D) 3.4 cm\S\2 LV V1 max PG 2.5 mmHg LV V1 mean PG 1.1 mmHg LV V1 max 79.6 cm/sec LV V1 mean 48.1 cm/sec LV V1 VTI 13.6 cm MR max dwight 364.6 cm/sec MR max PG 53.2 mmHg SV(LVOT) 53.8 ml SI(LVOT) 27.8 ml/m\S\2 PA V2 max 41.0 cm/sec PA max PG 0.67 mmHg TR max dwight 207.1 cm/sec
--- NOTE | 2016-04-06 12:35 | Medical Student: [facility] ---
Med Student Progress Note Date of Service Apr 06, 2016. Subjective Pt evaluation today including: conversation w/ patient, physical exam, chart review, lab review, review of studies Pt is a 70 year old male with a history of Afib and a recently diagnosed R chest mass who is admitted for 1-2 weeks of chest pain, dyspnea, palpitations, cough, and increased confusion. The pt currently complains of R chest pain and dyspnea. Further history is limited secondary to pt's confusion. Review of Systems Constitutional: + see HPI, No fever Respiratory: + see HPI Cardiac: + see HPI Male : No dysuria Neurologic: + see HPI Objective Vital Signs Date Time Temp Pulse Resp B/P Pulse Ox O2 Delivery O2 Flow Rate FiO2 04/06/16 11:53 36.6 114 19 137/93 97 Nasal Cannula 2.0 04/06/16 11:49 114 137/93 04/06/16 08:00 96 Nasal Cannula 2.0 04/06/16 07:30 109 138/78 04/06/16 07:25 36.2 109 20 138/78 95 Nasal Cannula 2.0 04/06/16 07:10 36.2 106 24 135/85 96 Room Air 04/06/16 04:21 130 04/06/16 04:00 Room Air 04/06/16 03:45 36.4 114 22 133/68 93 Nasal Cannula 2.0 04/06/16 00:17 154/68 04/06/16 00:15 36.5 112 20 120/85 95 Room Air 04/06/16 00:14 125 04/06/16 00:00 Room Air 04/05/16 20:22 36.6 110 18 125/77 93 Room Air 04/05/16 19:40 36.9 107 30 111/69 96 04/05/16 19:12 107 30 04/05/16 19:10 102 04/05/16 19:09 36.9 109 22 111/69 96 Room Air 04/05/16 19:07 109 41 95 04/05/16 19:06 111/69 04/05/16 19:04 119/70 04/05/16 19:02 98 30 92 04/05/16 19:00 128/90 04/05/16 19:00 143 122/88 04/05/16 18:58 122/88 04/05/16 18:57 136 26 04/05/16 18:52 138 23 04/05/16 18:47 140 24 04/05/16 18:46 122/80 04/05/16 17:32 135 04/05/16 17:27 143 04/05/16 17:22 142 04/05/16 17:17 169 18 04/05/16 17:12 140 24 04/05/16 17:07 136 29 04/05/16 17:02 142 19 04/05/16 16:57 136 21 04/05/16 16:52 143 22 04/05/16 16:47 131 15 04/05/16 16:42 129 30 04/05/16 16:37 143 41 04/05/16 16:32 142 29 04/05/16 16:29 149/118 04/05/16 16:27 129 45 04/05/16 16:22 139 25 98 04/05/16 16:17 145 22 95 04/05/16 16:17 36.9 137 23 112/82 97 Room Air 04/05/16 16:12 131 25 99 04/05/16 16:07 130 30 88 04/05/16 16:02 137 23 97 Room Air 04/05/16 15:59 112/82 04/05/16 15:57 131 43 90 Room Air 04/05/16 15:52 134 20 93 Room Air 04/05/16 15:47 125 27 91 Room Air 04/05/16 15:42 125 33 97 04/05/16 15:37 134 32 98 04/05/16 15:32 140 31 96 04/05/16 15:29 138/82 04/05/16 15:27 103 20 92 04/05/16 15:22 128 24 97 04/05/16 15:17 125 24 98 04/05/16 15:12 133 23 96 04/05/16 15:10 142 04/05/16 15:08 99 Room Air 04/05/16 15:07 137 28 98 04/05/16 15:01 142/81 04/05/16 14:46 36.9 82 18 116/70 99 Room Air Physical Exam General Appearance: no apparent distress Eyes: bilateral eyes EOMI, bilateral eyes normal inspection ENT: hearing grossly normal Respiratory/Chest: no respiratory distress, no accessory muscle use, + wheezing (Bilateral lower lobes. ), + pertinent finding (R chest tenderness) Cardiovascular: no edema, no gallop, no JVD, no murmur, + tachycardia, + irregularly irregular Abdomen: normal bowel sounds, non tender, soft Extremities: no pedal edema Neurologic/Psychiatric: alert Skin: normal color, warm/dry, no rash Laboratory Results Last 24 Hours Test 04/05/16 15:35 04/05/16 15:44 04/05/16 21:07 04/06/16 04:35 White Blood Count 17.73 K/uL 17.98 K/uL Red Blood Count 2.89 M/uL 2.92 M/uL Hemoglobin 8.5 g/dL 8.5 g/dL Hematocrit 26.7 % 26.9 % Mean Corpuscular Volume 92.4 fL 92.1 fL Mean Corpuscular Hemoglobin 29.4 pg 29.1 pg Mean Corpuscular Hemoglobin Concent 31.8 g/dl 31.6 g/dl Platelet Count 373 K/uL 346 K/uL Mean Platelet Volume 9.7 fL 9.4 fL Neutrophils (%) (Auto) 83.9 % 84.0 % Lymphocytes (%) (Auto) 6.6 % 6.3 % Monocytes (%) (Auto) 7.2 % 7.3 % Eosinophils (%) (Auto) 1.9 % 1.9 % Basophils (%) (Auto) 0.1 % 0.1 % Neutrophils # (Auto) 14.87 K/uL 15.09 K/uL Lymphocytes # (Auto) 1.17 K/uL 1.14 K/uL Monocytes # (Auto) 1.28 K/uL 1.32 K/uL Eosinophils # (Auto) 0.34 K/uL 0.34 K/uL Basophils # (Auto) 0.02 K/uL 0.01 K/uL RDW Standard Deviation 53.6 fL 53.8 fL RDW Coefficient of Variation 15.9 % 16.1 % Immature Granulocyte % (Auto) 0.3 % 0.4 % Immature Granulocyte # (Auto) 0.05 K/uL 0.08 K/uL Hypochromasia PRESENT Stomatocytes 1+ Prothrombin Time 13.8 SECONDS Prothromb Time International Ratio 1.3 Activated Partial Thromboplast Time 26.4 SECONDS Partial Thromboplastin Ratio 1.0 Sodium Level 137 mmol/L 139 mmol/L Potassium Level 3.6 mmol/L 4.2 mmol/L Chloride Level 98 mmol/L 102 mmol/L Carbon Dioxide Level 29 mmol/L 28 mmol/L Anion Gap 10.0 mmol/L 9.0 mmol/L Blood Urea Nitrogen 22 mg/dl 17 mg/dl Creatinine 1.20 mg/dl 1.00 mg/dl Est Creatinine Clear Calc Drug Dose 59.1 ml/min 67.7 ml/min Estimated GFR () 70.6 88.0 Estimated GFR (Non- 60.9 75.9 BUN/Creatinine Ratio 18.0 17.0 Random Glucose 99 mg/dl 108 mg/dl Calcium Level 8.8 mg/dl 8.2 mg/dl Total Creatine Kinase 92 U/L 106 U/L 103 U/L Creatine Kinase MB 2.0 ng/ml 3.1 ng/ml 3.2 ng/ml Creatine Kinase MB Ratio 2.2 2.9 3.1 Thyroid Stimulating Hormone (TSH) 2.020 uIu/ml Bedside Troponin I 0.020 ng/ml [id number] Natriuretic Peptide 6809 pg/ml Troponin I 0.028 ng/ml 0.023 ng/ml Nucleated RBC Absolute Count (auto) 0.02 K/uL Nucleated Red Blood Cells % 0.1 % Red Blood Cell Morphology Unremarkable Magnesium Level 2.2 mg/dl Test 04/06/16 06:30 04/06/16 12:24 Urine Color DK YELLOW Urine Appearance CLOUDY Urine pH 5.0 Urine Specific [place] 1.042 Urine Protein NEG Urine Glucose (UA) NEG Urine Ketones NEG Urine Occult Blood TRACE Urine Nitrite NEG Urine Bilirubin NEG Urine Urobilinogen POS Urine Leukocyte Esterase SMALL Urine WBC (Auto) 10-30 /hpf Urine RBC (Auto) 0-4 /hpf Urine Hyaline Casts (Auto) 1-5 /lpf Urine Epithelial Cells (Auto) >30 /lpf Urine Bacteria (Auto) NEG Urine Yeast (Auto) Assessment and Plan Assessment and Plan: Diagnostic Interpretation: Radiology results as stated below per my review and radiologist interpretation: CHEST ONE VIEW PORTABLE CLINICAL HISTORY: Chest pain. Confusion. Cancer. COMPARISON STUDY: Chest CT March 22, 2016. FINDINGS: An anterior cervical spine fusion is incidentally noted. The dominant right upper lobe mass, measuring approximately 8.9 cm, is similar to CT of March 22, 2016. Associated rib involvement is better depicted on that exam. A 4.2 cm right lower lobe mass is also better depicted on prior exam. Mild left basilar opacity favors atelectasis. There is no consolidation to suggest pneumonia. There is no pneumothorax or evidence of pulmonary edema. Cardiomediastinal silhouette is stable. Mild mediastinal widening as well as right hilar fullness is due to lymphadenopathy which is better depicted on CT. IMPRESSION: 1. No significant change in the right upper and lower lobe lung masses since CT of March 22, 2016. These are highly suggestive of lung cancer. 2. No change in mediastinal widening and right hilar fullness due to lymphadenopathy, better depicted on prior CT. Electronically signed by: Chris Pimentel M.D. 04/05/2016 3:43 PM CHEST CTA for PULMONARY ARTERIES CT DOSE: 281.10 mGy.cm HISTORY: Chest pain dyspnea TECHNIQUE: Multiaxial CT images of the chest were performed following the intravenous administration of contrast to evaluate the pulmonary arteries. Maximal intensity projection images were also obtained. COMPARISON STUDY: 03/22/2016 FINDINGS: Study is considered negative for pulmonary embolus. Pulmonary vascular enhances uniformly. The right hemithoracic and right hilar masses produces described are again noted. These are perhaps minimally increased in size compared to the prior exam. Invasive characteristics to the lateral right chest wall are noted in approximately progressive as well. Destructive changes of the ribs are slightly progressive. Left hemithorax remains generally clear. Hepatic metastatic deposit is again noted. IMPRESSION: 1. Study is negative for pulmonary embolus. 2. Right hemithoracic masses with pleural invasive changes laterally. 3. All findings of the right hemithorax are slightly progressive compared to the prior study. 4. Mediastinal and hilar adenopathy slightly progressive. 5. Hepatic metastatic change as has been previously noted. Electronically signed by: Mihir Holloway M.D. 04/05/2016 6:17 PM Transthoracic echocardiogram: * -- Conclusions -- * 1. Borderline dilated LV. Borderline concentric LVH. * 2. Mild to moderate global LV dsyfunction in the setting of atrial arrhythmia. LVEF 40-45%. * 3. Normal RV size and function. * 4. Mild mitral regurgitation * 5. Normal estimated RA and PA pressures. * 6. No prior studies for comparison. Assessment/Plan: Pt is a 70 year old male with a history of Afib and a recently diagnosed R chest mass who is admitted for 1-2 weeks of chest pain, dyspnea, palpitations, cough, and increased confusion. Imaging shows R lung masses and hilar adenopathy with invasion into the ribs that is highly suggestive of lung cancer , which has slightly progressed from prior study done on 03/22/16. There is also evidence of intrahepatic metastasis. Based on the pt's confusion over the last few weeks, consider brain metastasis as well. No evidence of PE on chest CT. He was scheduled to have a biopsy of the lung mass today by Dr. Hassan, who will also follow the pt. Will plan to consult oncology based on results. Will cover for possible PNA with levofloxacin and ceftriaxone given leukocytosis with L shift. SpO2 has been in the high 90s on 2 L O2 NC, which we will continue. Pt is also being treated with levalbuterol and Atrovent inhalers. BNP is markedly elevated at 6809, although the pt does not appear to be volume overloaded on exam. Will continue to monitor and consider adding Lasix if signs of volume overload develop. Echocardiogram was obtained, which showed borderline LVH and dilated LV. Normal RV size and function. Normal RA and PA pressures. Mild mitral regurgitation. Atrial fibrillation - Pt has been tachycardic and EKG shows atrial fibrillation. - Continue metoprolol for rate control. UA showed evidence of infection. Will add urine culture. Currently treated with IV Abx. Anemia with Hb of 8.5. Will continue to follow CBC. Continued [facility] stay due to: abnormal vital signs, multiple IV medications needed
[2016-04-06 13:43] LABS: CKMB/CK RATIO 3.4 (0-3.0)
[2016-04-06] MEDS: METOPROLOL TARTRATE 25 MG TAB PO SCH ×2 (14:20→21:18)
[2016-04-06] MEDS ORDERED: MoRPHine SULFATE 2 MG/ML CARP ONE (14:38)
[2016-04-06] MEDS ORDERED: MoRPHine SULFATE 2 MG/ML CARP IV ONE (14:45)
[2016-04-06] MEDS ORDERED: NURSING VERBAL MED ORDER ONE (14:45)
--- NOTE | 2016-04-06 16:31 | Progress Note ---
Subjective Subjective Date of Service: Apr 06, 2016. Pt evaluation today including: conversation w/ patient, physical exam, chart review, review of studies, review of inpatient medication list Notes: ROS is limited due to patient confusion, son at bedside Problem List Medical Problems: (1) Dehydration Status: Acute (2) Lung cancer Status: Acute (3) Rapid atrial fibrillation Status: Acute Review of Systems Constitutional: No fever ENT: No hearing loss Respiratory: No cough Cardiac: No chest pain Male : No dysuria Physical Exam Vital Signs Vital Signs Past 24 Hours: Date Time Temp Pulse Resp B/P Pulse Ox O2 Delivery O2 Flow Rate FiO2 04/06/16 14:58 36.4 111 20 125/68 100 Nasal Cannula 3.0 04/06/16 14:26 129 22 121/81 100 Nasal Cannula 3.0 04/06/16 12:00 97 Nasal Cannula 2.0 04/06/16 11:53 36.6 114 19 137/93 97 Nasal Cannula 2.0 04/06/16 11:49 114 137/93 04/06/16 08:00 96 Nasal Cannula 2.0 04/06/16 07:30 109 138/78 04/06/16 07:25 36.2 109 20 138/78 95 Nasal Cannula 2.0 04/06/16 07:10 36.2 106 24 135/85 96 Room Air 04/06/16 04:21 130 04/06/16 04:00 Room Air 04/06/16 03:45 36.4 114 22 133/68 93 Nasal Cannula 2.0 04/06/16 00:17 154/68 04/06/16 00:15 36.5 112 20 120/85 95 Room Air 04/06/16 00:14 125 04/06/16 00:00 Room Air 04/05/16 20:22 36.6 110 18 125/77 93 Room Air 04/05/16 19:40 36.9 107 30 111/69 96 04/05/16 19:12 107 30 04/05/16 19:10 102 04/05/16 19:09 36.9 109 22 111/69 96 Room Air 04/05/16 19:07 109 41 95 04/05/16 19:06 111/69 04/05/16 19:04 119/70 04/05/16 19:02 98 30 92 04/05/16 19:00 128/90 04/05/16 19:00 143 122/88 04/05/16 18:58 122/88 04/05/16 18:57 136 26 04/05/16 18:52 138 23 04/05/16 18:47 140 24 04/05/16 18:46 122/80 04/05/16 17:32 135 04/05/16 17:27 143 04/05/16 17:22 142 04/05/16 17:17 169 18 04/05/16 17:12 140 24 04/05/16 17:07 136 29 04/05/16 17:02 142 19 04/05/16 16:57 136 21 04/05/16 16:52 143 22 04/05/16 16:47 131 15 04/05/16 16:42 129 30 04/05/16 16:37 143 41 04/05/16 16:32 142 29 04/05/16 16:29 149/118 04/05/16 16:27 129 45 Physical Exam: General Appearance: WD/WN, no apparent distress Eyes: bilateral eyes normal inspection ENT: hearing grossly normal, pharynx normal Neck: no adenopathy Respiratory/Chest: chest non-tender, + rales Cardiovascular: regular rate, rhythm, no gallop Abdomen: normal bowel sounds Extremities: non-tender Neurologic/Psychiatric: alert Skin: normal color Medications Medications: Current Inpatient Medications Medications (Trade) Dose Ordered Sig/Juan Alberto Route Start Time Stop Time Status Last Admin Dose Admin Ioversol (Optiray 320) 125 ml UD PRN IV 04/05/16 16:45 04/09/16 16:44 Nitroglycerin (Nitrostat Tab) 0.4 mg UD PRN SL 04/05/16 18:45 05/05/16 18:44 Ondansetron HCl 4 mg 4 mg Q6H PRN IV 04/05/16 18:45 05/05/16 18:44 Acetaminophen 100 ml @ 400 mls/hr Q8H PRN IV 04/05/16 18:45 05/05/16 18:44 Ceftriaxone Sodium 1 gm/ Dextrose 50 ml @ 100 mls/hr Q24H IV 04/05/16 21:00 04/12/16 19:14 04/05/16 21:54 100 MLS/HR Levofloxacin/Prmx (Levaquin / D5W/ Premixed D5W) 100 ml @ 100 mls/hr Q24H IV 04/05/16 22:00 04/12/16 19:14 04/05/16 21:55 100 MLS/HR Ipratropium [place] (Atrovent 0.02% 0.5MG/2.5ML Neb) 0.5 mg Q2H PRN INH 04/05/16 19:15 05/05/16 19:14 Levalbuterol (Xopenex 1.25MG/ 0.5ML Neb) 1.25 mg Q2H PRN INH 04/05/16 19:15 05/05/16 19:14 Metoprolol Tartrate (Lopressor Tab) 25 mg BID PO 04/06/16 13:45 05/06/16 13:44 04/06/16 14:20 25 MG Metoprolol Tartrate (Lopressor Iv) 5 mg Q6 IV. 04/06/16 18:00 05/06/16 17:59 Laboratory Data Labs: Last 24 Hours Test 04/05/16 21:07 04/06/16 04:35 04/06/16 06:30 04/06/16 12:50 Total Creatine Kinase 106 U/L 103 U/L 90 U/L Creatine Kinase MB 3.1 ng/ml 3.2 ng/ml 3.1 ng/ml Creatine Kinase MB Ratio 2.9 3.1 3.4 Troponin I 0.028 ng/ml 0.023 ng/ml 0.020 ng/ml White Blood Count 17.98 K/uL Red Blood Count 2.92 M/uL Hemoglobin 8.5 g/dL Hematocrit 26.9 % Mean Corpuscular Volume 92.1 fL Mean Corpuscular Hemoglobin 29.1 pg Mean Corpuscular Hemoglobin Concent 31.6 g/dl Platelet Count 346 K/uL Mean Platelet Volume 9.4 fL Neutrophils (%) (Auto) 84.0 % Lymphocytes (%) (Auto) 6.3 % Monocytes (%) (Auto) 7.3 % Eosinophils (%) (Auto) 1.9 % Basophils (%) (Auto) 0.1 % Neutrophils # (Auto) 15.09 K/uL Lymphocytes # (Auto) 1.14 K/uL Monocytes # (Auto) 1.32 K/uL Eosinophils # (Auto) 0.34 K/uL Basophils # (Auto) 0.01 K/uL RDW Standard Deviation 53.8 fL RDW Coefficient of Variation 16.1 % Immature Granulocyte % (Auto) 0.4 % Immature Granulocyte # (Auto) 0.08 K/uL Nucleated RBC Absolute Count (auto) 0.02 K/uL Nucleated Red Blood Cells % 0.1 % Red Blood Cell Morphology Unremarkable Sodium Level 139 mmol/L Potassium Level 4.2 mmol/L Chloride Level 102 mmol/L Carbon Dioxide Level 28 mmol/L Anion Gap 9.0 mmol/L Blood Urea Nitrogen 17 mg/dl Creatinine 1.00 mg/dl Est Creatinine Clear Calc Drug Dose 67.7 ml/min Estimated GFR () 88.0 Estimated GFR (Non- 75.9 BUN/Creatinine Ratio 17.0 Random Glucose 108 mg/dl Calcium Level 8.2 mg/dl Magnesium Level 2.2 mg/dl Urine Color DK YELLOW Urine Appearance CLOUDY Urine pH 5.0 Urine Specific [place] 1.042 Urine Protein NEG Urine Glucose (UA) NEG Urine Ketones NEG Urine Occult Blood TRACE Urine Nitrite NEG Urine Bilirubin NEG Urine Urobilinogen POS Urine Leukocyte Esterase SMALL Urine WBC (Auto) 10-30 /hpf Urine RBC (Auto) 0-4 /hpf Urine Hyaline Casts (Auto) 1-5 /lpf Urine Epithelial Cells (Auto) >30 /lpf Urine Bacteria (Auto) NEG Urine Yeast (Auto) Assessment and Plan A 70 yo male comes with MAT with ST depressions in leads V3 and V4 cont on Lopressor 5 mg IV every 4 hours with hold parameters. 2-D echocardiogram with Dopplers: EF 40%. restart pradaxa start metoprolol 25 mg bid po Anemia, his hemoglobin upon admission was 8.5. Due to the accompanying MAT and hypoxia, patient was transfused 1 unit of packed RBCs by admitting doctor Metastatic lung cancer to liver- s/p left side lung biopsy by Dr. Hassan, awaiting results. check MRI brain to complete metastatic w/u, need to follow up with oncology BPH--continue tamsulosin 0.4 mg by mouth every morning. possible d/c home tomorrow, patient may be requiring palliative care consult and hospice if family does not want chemoTx, will d/w family tomorrow Continued [facility] stay due to: abnormal vital signs, multiple IV medications needed
--- NOTE | 2016-04-06 16:44 | Oncology Consultation ---
Oncology/Heme Consultation Date of Consultation: Apr 06, 2016. Attending Physician: Fuad West MD Reason for Consultation: Metastatic non-small cell lung carcinoma History of Present Illness 70-year-old gentleman that presents in a declining performance status. His sons provided most of the information. He has been declining particularly over the past couple of weeks. He really doesn't move much around the house any longer. His appetite is also decreased. He stated he is lost about 40 pounds in the past 4-6 months or so. X-rays of demonstrated findings consistent with metastatic disease to the liver as well as a right lung lesion with rib involvement. A CT scan today had done earlier in March suggests a metastatic deposit in addition. He is a long-time smoker. A biopsy done in radiology today is eating read preliminarily as consistent with non-small cell carcinoma Past Medical/Surgical History Medical Problems: (1) Dehydration Status: Acute (2) Lung cancer Status: Acute (3) Rapid atrial fibrillation Status: Acute Family History FHx: cancer Social History Positive for smoking rather heavily. There is no significant history of alcohol usage Smoking Status: Former Smoker Smokeless Tobacco Use: No Alcohol Use: none Drug Use: none Marital Status: Housing Status: lives with significant other Occupation Status: retired Allergies Coded Allergies: No Known Allergies (Unverified , 04/05/16) Home Medications Scheduled Dabigatran Etexilate Mesylate (Pradaxa), 75 MG PO BID Tamsulosin HCl (Tamsulosin HCl), 0.4 MG PO QAM Scheduled PRN Docusate Sodium (Colace), 1 CAP PO DIRECTED PRN for PRN Tramadol (Ultram), 50 MG PO Q8H PRN for Pain Current Inpatient Medications Current Inpatient Medications Medications (Trade) Dose Ordered Sig/Juan Alberto Route Start Time Stop Time Status Last Admin Dose Admin Ioversol (Optiray 320) 125 ml UD PRN IV 04/05/16 16:45 04/09/16 16:44 Nitroglycerin (Nitrostat Tab) 0.4 mg UD PRN SL 04/05/16 18:45 05/05/16 18:44 Ondansetron HCl 4 mg 4 mg Q6H PRN IV 04/05/16 18:45 05/05/16 18:44 Acetaminophen 100 ml @ 400 mls/hr Q8H PRN IV 04/05/16 18:45 05/05/16 18:44 Ceftriaxone Sodium 1 gm/ Dextrose 50 ml @ 100 mls/hr Q24H IV 04/05/16 21:00 04/12/16 19:14 04/05/16 21:54 100 MLS/HR Levofloxacin/Prmx (Levaquin / D5W/ Premixed D5W) 100 ml @ 100 mls/hr Q24H IV 04/05/16 22:00 04/12/16 19:14 04/05/16 21:55 100 MLS/HR Ipratropium Allen (Atrovent 0.02% 0.5MG/2.5ML Neb) 0.5 mg Q2H PRN INH 04/05/16 19:15 05/05/16 19:14 Levalbuterol (Xopenex 1.25MG/ 0.5ML Neb) 1.25 mg Q2H PRN INH 04/05/16 19:15 05/05/16 19:14 Metoprolol Tartrate (Lopressor Tab) 25 mg BID PO 04/06/16 13:45 05/06/16 13:44 04/06/16 14:20 25 MG Metoprolol Tartrate (Lopressor Iv) 5 mg Q6 IV. 04/06/16 18:00 05/06/16 17:59 Dabigatran (Pradaxa Cap) 75 mg BID PO 04/06/16 21:00 05/06/16 20:59 UNV Review of Systems It is difficult to get what I believe would be an accurate review of systems. The patient is confused Constitutional: Positive for weight loss Cardiovascular: I understand is been some complaint of chest pain Respiratory: Negative for new shortness of breath,hemoptysis, or purulent cough Neurological: Generalized weakness. There is also been confusion and mentation changes as reviewed over the past few weeks if not longer Lymphatic/Hematologic: Negative for petechiae, bleeding or new adenopathy Musculoskeletal: Negative for new joint or back pain Allergic/Immunologic: Negative for unusual rash or pruritis. Physical Exam Date Time Temp Pulse Resp B/P Pulse Ox O2 Delivery O2 Flow Rate FiO2 04/06/16 14:58 36.4 111 20 125/68 100 Nasal Cannula 3.0 04/06/16 14:26 129 22 121/81 100 Nasal Cannula 3.0 04/06/16 12:00 97 Nasal Cannula 2.0 04/06/16 11:53 36.6 114 19 137/93 97 Nasal Cannula 2.0 04/06/16 11:49 114 137/93 04/06/16 08:00 96 Nasal Cannula 2.0 04/06/16 07:30 109 138/78 04/06/16 07:25 36.2 109 20 138/78 95 Nasal Cannula 2.0 04/06/16 07:10 36.2 106 24 135/85 96 Room Air 04/06/16 04:21 130 04/06/16 04:00 Room Air 04/06/16 03:45 36.4 114 22 133/68 93 Nasal Cannula 2.0 04/06/16 00:17 154/68 04/06/16 00:15 36.5 112 20 120/85 95 Room Air 04/06/16 00:14 125 04/06/16 00:00 Room Air 04/05/16 20:22 36.6 110 18 125/77 93 Room Air 04/05/16 19:40 36.9 107 30 111/69 96 04/05/16 19:12 107 30 04/05/16 19:10 102 04/05/16 19:09 36.9 109 22 111/69 96 Room Air 04/05/16 19:07 109 41 95 04/05/16 19:06 111/69 04/05/16 19:04 119/70 04/05/16 19:02 98 30 92 04/05/16 19:00 128/90 04/05/16 19:00 143 122/88 04/05/16 18:58 122/88 04/05/16 18:57 136 26 04/05/16 18:52 138 23 04/05/16 18:47 140 24 04/05/16 18:46 122/80 04/05/16 17:32 135 04/05/16 17:27 143 04/05/16 17:22 142 04/05/16 17:17 169 18 04/05/16 17:12 140 24 04/05/16 17:07 136 29 04/05/16 17:02 142 19 04/05/16 16:57 136 21 04/05/16 16:52 143 22 04/05/16 16:47 131 15 04/05/16 16:42 129 30 04/05/16 16:37 143 41 Constitutional: vitals are stable. Cachectic-appearing 70-year-old gentleman oriented 2-3 Eyes: Eyes are DORIAN EOMI without conjuctival erythema or icterus. ENT: External examination was negative for masses. Neck: Negative for masses or palpable thyromegaly Respiratory: Lung sounds were generally clear bilaterally but decreased throughout Cardiovascular: Heart was RRR without significant murmur, gallops aoe rubs Gastrointestinal: No palpable hepatic or splenomegaly. The abdomen was soft with normal bowel sounds. Lymphatic system: He has palpable hard right supraclavicular adenopathy Musculoskeletal System: The musculoskeletal system seemed concordant with age. Skin: The skin was negative for jaundice. Neurologic exam: The exam was negative for any focal findings. Psychiatric exam: Difficult to assess Extremities: Trace edema bilaterally dependently Laboratory Results Last 24 Hours Test 04/05/16 21:07 04/06/16 04:35 04/06/16 06:30 04/06/16 12:50 Total Creatine Kinase 106 U/L 103 U/L 90 U/L Creatine Kinase MB 3.1 ng/ml 3.2 ng/ml 3.1 ng/ml Creatine Kinase MB Ratio 2.9 3.1 3.4 Troponin I 0.028 ng/ml 0.023 ng/ml 0.020 ng/ml White Blood Count 17.98 K/uL Red Blood Count 2.92 M/uL Hemoglobin 8.5 g/dL Hematocrit 26.9 % Mean Corpuscular Volume 92.1 fL Mean Corpuscular Hemoglobin 29.1 pg Mean Corpuscular Hemoglobin Concent 31.6 g/dl Platelet Count 346 K/uL Mean Platelet Volume 9.4 fL Neutrophils (%) (Auto) 84.0 % Lymphocytes (%) (Auto) 6.3 % Monocytes (%) (Auto) 7.3 % Eosinophils (%) (Auto) 1.9 % Basophils (%) (Auto) 0.1 % Neutrophils # (Auto) 15.09 K/uL Lymphocytes # (Auto) 1.14 K/uL Monocytes # (Auto) 1.32 K/uL Eosinophils # (Auto) 0.34 K/uL Basophils # (Auto) 0.01 K/uL RDW Standard Deviation 53.8 fL RDW Coefficient of Variation 16.1 % Immature Granulocyte % (Auto) 0.4 % Immature Granulocyte # (Auto) 0.08 K/uL Nucleated RBC Absolute Count (auto) 0.02 K/uL Nucleated Red Blood Cells % 0.1 % Red Blood Cell Morphology Unremarkable Sodium Level 139 mmol/L Potassium Level 4.2 mmol/L Chloride Level 102 mmol/L Carbon Dioxide Level 28 mmol/L Anion Gap 9.0 mmol/L Blood Urea Nitrogen 17 mg/dl Creatinine 1.00 mg/dl Est Creatinine Clear Calc Drug Dose 67.7 ml/min Estimated GFR () 88.0 Estimated GFR (Non- 75.9 BUN/Creatinine Ratio 17.0 Random Glucose 108 mg/dl Calcium Level 8.2 mg/dl Magnesium Level 2.2 mg/dl Urine Color DK YELLOW Urine Appearance CLOUDY Urine pH 5.0 Urine Specific [place] 1.042 Urine Protein NEG Urine Glucose (UA) NEG Urine Ketones NEG Urine Occult Blood TRACE Urine Nitrite NEG Urine Bilirubin NEG Urine Urobilinogen POS Urine Leukocyte Esterase SMALL Urine WBC (Auto) 10-30 /hpf Urine RBC (Auto) 0-4 /hpf Urine Hyaline Casts (Auto) 1-5 /lpf Urine Epithelial Cells (Auto) >30 /lpf Urine Bacteria (Auto) NEG Urine Yeast (Auto) Assessment & Plan Scans are reviewed. MRI of the brain is still pending. Findings are consistent with lung carcinoma with mediastinal as well as rib involvement and liver involvement. His performance status is such that systemic chemotherapy would not be warranted and certainly not very helpful. This was reviewed with his sons. I believe hospice and supportive care only would be the best approach. Dr. Moreno is also visited with the patient and sons concerning palliative radiation therapy. I believe our role from the therapeutic standpoint as medical oncologists will be very limited.
--- NOTE | 2016-04-06 16:53 | Radiation Oncology Consult ---
Radiation Oncology Consult Date / Reason Apr 06, 2016. Physicians Primary Care Provider: Dr. Winters Medical Oncologist: Dr. Malcolm Bal Radiation Oncologist: Dr. Dagoberto Moreno Surgeon: Dr. Johan Hassan Diagnosis (1) Metastatic lung carcinoma Stage: IV Permanent Comment: Pathology is currently pending still. Biopsy completed today - 04/06/16. Last Edited By: Dagoberto Moreno on Apr 06, 2016 16:24 History of Present Illness I am seeing Mr. Celestin in consultation at the request of Dr. Johan Hassan. The patient's 2 sons were present at the time of the consultation. ECOG PS: 3 - 4 Mr. Celestin is a 70 year old male with a previous smoking history who recently presented with a right upper lobe mass. The patient initially presented with a deteriorating overall condition over the last 6 months. The patient's son states that he has been living with his and been independent however his overall condition has declined and that the patient's 's condition is also declining. The patient's son states that the patient has been having difficulty with walking and coordination. He did have initial imaging studies completed on 03/22/2016. He did have a CT thorax which revealed: "IMPRESSION: 1. Emphysema. 2. There is a dominant 8.4 cm mass lesion with foci of central necrosis seen in the right upper lobe. This invades the right fourth and fifth ribs and also extends through the right pleura. 3. There is a second 4.3 cm spiculated mass lesion in the right lower lobe with foci of central necrosis and cavitation. This approaches the right hilum. 4. There is right supraclavicular, right hilar, and mediastinal lymphadenopathy consistent with metastatic disease. 5. There is a 7 cm hepatic metastasis. 8. Cardiomegaly." He did also have a CT head completed on the same day which revealed "IMPRESSION : A 7 mm enhancing lesion within the left frontal lobe which is highly suspicious for a metastatic focus." More recently, the patient was admitted again to the hospital due to increasing chest pain in his right side. He did have a repeat CT chest on 04/05/2016 which revealed: "IMPRESSION: 1. Study is negative for pulmonary embolus. 2. Right hemithoracic masses with pleural invasive changes laterally. 3. All findings of the right hemithorax are slightly progressive compared to the prior study. 4. Mediastinal and hilar adenopathy slightly progressive. 5. Hepatic metastatic change as has been previously noted." The patient did undergo a CT-guided biopsy on 04/06/2016 and the pathology is pending but preliminary diagnosis is consistent with lung cancer. We were asked to evaluate the patient for consideration of palliative radiation therapy to the right chest wall and consideration of treatment to the brain. Past History Past Medical/Surgical History: Atrial Fibrillation, Hypertension Surgical History Surgeries: No Radiation History History Of Radiation Therapy: No Chemotherapy History History of Chemotherapy: No Family History Positive for cancer Social History Smoking Status: Former Smoker Hx Tobacco Use In Past Year?: Yes Do You Dip or Chew Tobacco: No Hx Alcohol Use: No Hx Substance Use : No Allergies Coded Allergies: No Known Allergies (Unverified , 04/05/16) Home Medications Scheduled Dabigatran Etexilate Mesylate (Pradaxa), 75 MG PO BID Tamsulosin HCl (Tamsulosin HCl), 0.4 MG PO QAM Scheduled PRN Docusate Sodium (Colace), 1 CAP PO DIRECTED PRN for PRN Tramadol (Ultram), 50 MG PO Q8H PRN for Pain Review of Systems Ear/Hearing: Ear Side: Bilateral Hearing Ability: Hard of Hearing Hearing Aid: None Edema: Present?: Yes Location Body Site Modifier: Bilateral Type: Pitting Degree: Trace Pain Management Side: Right Patient Preferred Pain Scale: Cognitively Impaired Initial Pain Intensity: 5.0 Physical Exam ECOG Performance Status: 3 Height: 6 (Feet) 1.00 (Inches) 185.4 (Centimeters) 1.8542 (Meters) Weight: 153 (Pounds) 7.0 (Ounces) 69.600 (Kilograms) 38070.000 (Grams) Date Time Temp Pulse Resp B/P Pulse Ox O2 Delivery O2 Flow Rate FiO2 04/06/16 14:58 36.4 111 20 125/68 100 Nasal Cannula 3.0 04/06/16 14:26 129 22 121/81 100 Nasal Cannula 3.0 04/06/16 12:00 97 Nasal Cannula 2.0 04/06/16 11:53 36.6 114 19 137/93 97 Nasal Cannula 2.0 04/06/16 11:49 114 137/93 04/06/16 08:00 96 Nasal Cannula 2.0 04/06/16 07:30 109 138/78 04/06/16 07:25 36.2 109 20 138/78 95 Nasal Cannula 2.0 04/06/16 07:10 36.2 106 24 135/85 96 Room Air 04/06/16 04:21 130 04/06/16 04:00 Room Air 04/06/16 03:45 36.4 114 22 133/68 93 Nasal Cannula 2.0 04/06/16 00:17 154/68 04/06/16 00:15 36.5 112 20 120/85 95 Room Air 04/06/16 00:14 125 04/06/16 00:00 Room Air 04/05/16 20:22 36.6 110 18 125/77 93 Room Air 04/05/16 19:40 36.9 107 30 111/69 96 04/05/16 19:12 107 30 04/05/16 19:10 102 04/05/16 19:09 36.9 109 22 111/69 96 Room Air 04/05/16 19:07 109 41 95 04/05/16 19:06 111/69 04/05/16 19:04 119/70 04/05/16 19:02 98 30 92 04/05/16 19:00 128/90 04/05/16 19:00 143 122/88 04/05/16 18:58 122/88 04/05/16 18:57 136 26 04/05/16 18:52 138 23 04/05/16 18:47 140 24 04/05/16 18:46 122/80 04/05/16 17:32 135 04/05/16 17:27 143 04/05/16 17:22 142 04/05/16 17:17 169 18 04/05/16 17:12 140 24 04/05/16 17:07 136 29 04/05/16 17:02 142 19 04/05/16 16:57 136 21 04/05/16 16:52 143 22 04/05/16 16:47 131 15 04/05/16 16:42 129 30 04/05/16 16:37 143 41 04/05/16 16:32 142 29 04/05/16 16:29 149/118 04/05/16 16:27 129 45 General Appearance: + mild distress Head: normocephalic, atraumatic Eyes: normal inspection ENT: normal ENT inspection Neck: supple Respiratory/Chest: lungs clear, normal breath sounds, + pertinent finding ( Tenderness to palpation in the right chest wall. 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 Imaging Imaging studies: were reviewed (as per HPI) Assessment & Recommendations Mr. Celestin is a 70-year-old gentleman with a probable diagnosis of metastatic lung carcinoma involving the liver and brain. The patient did have a biopsy today in the pathology is still pending. The patient was seen by Dr. Hassan who did recommend consideration of palliative radiation therapy to the right chest wall. The patient is also being seen by medical oncologist today. I did have an in depth discussion regarding the overall management of stage IV lung cancer with the patient and his sons. With respect to his right chest wall pain, I have recommended a short course of palliative external beam radiation therapy to the right chest wall to help alleviate his pain. With respect to his solitary brain metastasis, I have recommended conservative management given the low likelihood it is causing any significant neurologic symptoms and consideration of treatment if the patient's overall condition improves. The patient sons agree with this approach and we will bring the patient down tomorrow for CT simulation for treatment planning of the right chest wall radiation therapy. We have explained the indications, alternatives, benefits, risks and side effects of radiation therapy. We have explained the most common side effects including but are not limited to skin erythema, skin break down, hair loss, fibrosis, adhesion development, radiation pneumonitis, rib and bone fracture, heart failure and heart disease, esophagitis, bowel obstruction, urinary symptoms, thyroid disorders, mucositis, nauesea, vomiting, diarrhea, anemia, fatigue and development of secondary malignancy. We also discussed that male patients may have issues with erections (potency) and infertility issues depending on their age and area of treatment. We have explained the CT simulation process and treatment planning. We explained what to expect before, during and after treatment on a regular basis. The patient understands and would be willing to consent to treatment. The patient and family had multiple questions which were answered to their full satisfaction. Thank you for allowing us to participate in the care of this patient. This chart was completed in part utilizing [employer] Speech Voice Recognition software. Attempts were made to minimize the grammatical errors, random word insertions, pronoun errors and incomplete sentences. Any formal questions or concerns about the content, text or information contained within the body of this dictation should be directly addressed to the provider for clarification. Dagoberto Moreno MD Department of Radiation Oncology [facility] Total Time In Consultation I spent 30 minutes examining and counseling the patient. I spent 15 minutes completing this note. Copy To Malcolm Bal D.O.; Som Winters M.D.; Johan Hassan MD
[2016-04-06] MEDS: CEFTRIAXONE SOD INJ 1 GM in DEXTROSE 5% ADD-VANTAGE 50ML 50 ML IV SCH (21:17)
[2016-04-06] MEDS: DABIGATRAN ELEXILATE 75 MG CAP PO SCH (21:18)
[2016-04-06] MEDS: LEVOFLOXACIN / D5W 500 MG in PREMIXED IN D5W 100 ML IV SCH (21:21)
[2016-04-07] VITALS (13 sets, daily range): BP systolic 101–145; BP diastolic 62–86; PULSE 64–126; TEMP 36.2–36.7; O2SAT 94–100
--- NOTE | 2016-04-07 00:03 | SURGICAL CONSULTATION ---
DATE OF CONSULTATION: 04/06/2016 REASON FOR CONSULTATION: Followup for right chest mass with apparent mediastinal and hepatic metastases and possible cerebral metastases. HISTORY OF PRESENT ILLNESS: Roc Celestin is a 70-year-old male who I met last week in the office. He has a history of heavy drinking which he quit a few years ago but continued heavy smoking until just recently. I saw him 5 days ago in the office and explained quite carefully to his son that we are probably dealing with a nonsmall cell lung carcinoma; however, small cell lung carcinoma is also a possibility. I explained to them that we needed tissue diagnosis and actually had him scheduled for needle biopsy today. The patient has had chest pain on the right. He has had decreased appetite with not only weight loss but becoming much more weak on his feet. He has also had some mental status changes which concerned his family tremendously. He is quite short of breath. PAST MEDICAL HISTORY: 1. Long history of cigarette smoking. 2. History of skin cancer. 3. Chronic obstructive pulmonary disease. 4. His history is significant for only a deep vein thrombosis. 5. Coronary artery disease. 6. History of myocardial infarction. 7. Hypertension. 8. Multifocal atrial tachycardia. PAST SURGICAL HISTORY: Apparent ablation for his multifocal atrial tachycardia. MEDICATIONS: 1. Pradaxa. 2. Flomax. ALLERGIES: No known drug allergies. SOCIAL HISTORY: The patient smoked his entire life until recently. He lives with his . He is retired. He has gone "downhill" over the last 6 months. 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 He quit smoking 10 days ago. REVIEW OF SYSTEMS: The patient has lost considerable amount of weight. Family states that he has lost over 50 pounds in the last year. He also has had some headaches and some cognitive dysfunction. He has had a cough with occasional hemoptysis. He is complaining of pain over his right lateral chest. He has also been quite weak and has required a wheelchair. Interestingly enough, he is complaining of pain in his proximal lower leg anteriorly. He apparently has been anorexic also. He has had no skin breakdown. He really does not have much in the way of peripheral edema, although his family states he has had it in the past. He has had no obvious focal deficits other than the fact that his cognitive function appears to be decreasing and his legs are weak, but not unilaterally or focally. PHYSICAL EXAMINATION: GENERAL: This is a cachectic appearing white male who stands 6 feet 1 inch tall and weighs 153 pounds. HEENT: His extraocular movements are intact. Pupils are equal, round, reactive. He has no scleral edema. He has no icterus. His mucous membranes are quite dry. NECK: Supple. I detect no supraclavicular or cervical lymphadenopathy, neck vein distention, thyromegaly or carotid bruits. He has no tracheal deviation. HEART: He has an irregular rhythm at about 100 beats per minute. He has PVCs. I do not detect a significant rub. LUNGS: He has decreased breath sounds throughout but no obvious wheezing. ABDOMEN: Soft, nontender. I feel no evidence of abdominal aortic aneurysm, hepatosplenomegaly or ascites. EXTREMITIES: He has trace edema of both lower extremities, but I can palpate posterior tibialis pulses. He has no wound breakdown. He has no joint effusions. NEUROLOGIC: He will follow commands and move all of his extremities. His lower extremities are quite weak. LABORATORY DATA: His white count of 17,730 with a hemoglobin of only 8.5 and a platelet count of 373,000. PT/INR is a little elevated at 13.8/1.3. His BUN and creatinine are 22 and 1.20 respectively. His beta natriuretic peptide is 6809. He had a repeat CT scan which is not much different, showing the large mass abutting his chest wall and eroding into his ribs. He also has marked mediastinal adenopathy and a large hepatic mass. ASSESSMENT AND PLAN: This is most likely a nonsmall cell lung carcinoma. I discussed the findings of the core biopsy done by Dr. Holloway. This was read by Dr. Schwartz who feels we are probably dealing with a nonsmall cell lung carcinoma. We are going to get radiation therapy and hematology/oncology involved in this case. [facility]
[2016-04-07] MEDS: METOPROLOL TARTRATE 1 MG/ML VIAL IV. SCH ×5 (00:43→23:59)
[2016-04-07] MEDS ORDERED: LORAZEPAM INJ 0.5 MG in SYRINGE 0.25 ML IV STA ×2 (02:01→08:18)
[2016-04-07] MEDS ORDERED: NURSING VERBAL MED ORDER ONE (02:30)
[2016-04-07] MEDS ORDERED: LORAZEPAM 2 MG/ML 1 ML VIAL ONE (02:57)
[2016-04-07 07:50] LABS: BASO ABS # 0.01 K/uL (0-0.2); EOS % 2.3 %; HEMATOCRIT 28.6 % (42-52); IG% 0.5 %; LYMPH % 7.2 %; MEAN CELL VOLUME 94.4 fL (80-100); MEAN CORPUSCULAR HEMOGLOBIN 28.7 pg (25-34); MEAN CORPUSCULAR HGB CONC 30.4 g/dl (32-36); MEAN PLATELET VOLUME 9.8 fL (7.4-10.4); MONO % 6.2 %; NEUT % 83.8 %; PLATELET COUNT 360 K/uL (130-400); RED BLOOD COUNT 3.03 M/uL (4.7-6.1); WHITE BLOOD COUNT 22.34 K/uL (4.8-10.8)
[2016-04-07 08:14] LABS: BUN/CREATININE RATIO 16.5 (10-20); CALCIUM 8.7 mg/dl (8.5-10.1); CREATININE 0.91 mg/dl (0.60-1.40); MAGNESIUM 2.3 mg/dl (1.8-2.4)
[2016-04-07 08:54] LABS: COMPLETE YES; SPHEROCYTE 1+
[2016-04-07] MEDS: DABIGATRAN ELEXILATE 75 MG CAP PO SCH ×2 (09:16→21:15)
[2016-04-07] MEDS: METOPROLOL TARTRATE 25 MG TAB PO SCH ×2 (09:16→21:15)
--- NOTE | 2016-04-07 09:49 | SURGERY PROGRESS NOTE ---
DATE: 04/07/2016 DATE: 04/07/2016. Mr. Celestin was seen today. 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 An MRI of his brain was attempted last night; however, could not be done due to his agitation. He is very lethargic now. I discussed his case with Dr. Moreno and Dr. Bal. The patient's [id number] was at the bedside with Dr. Bal and I this morning. We had a long talk about the fact that this is stage IV disease. We discussed the fact that the radiation therapy will be helpful for his right ribs; however, the right rib pain however it is still unclear whether he needs cranial radiation. At any rate, at this point I of course do not have anything to offer from an interventional standpoint. We had a long discussion with the patient's [id number] about this.
--- NOTE | 2016-04-07 09:58 | Hematology/Oncology Prog Note ---
Hematology/Onc Progress Note Date of Service Apr 07, 2016. Diagnoses Metastatic non-small cell lung carcinoma. Medications Medications Administered Medications (Trade) Dose Ordered Sig/Juan Alberto Route Start Time Stop Time Status Last Admin Dose Admin Sodium Chloride 250 ml @ 999 mls/hr Q16M STAT IV 04/05/16 15:10 04/05/16 15:25 DC 04/05/16 15:52 999 MLS/HR Sodium Chloride 1,000 ml @ 100 mls/hr Q10H STAT IV 04/05/16 15:10 04/05/16 20:05 DC 04/05/16 15:52 100 MLS/HR Sodium Chloride (Nss 1000ml) 1,000 ml @ 999 mls/hr Q1H1M STAT IV 04/05/16 15:54 04/05/16 16:54 DC 04/05/16 15:58 999 MLS/HR Ondansetron HCl (Zofran Inj) 4 mg NOW STAT IV 04/05/16 16:45 04/05/16 16:47 DC 04/05/16 16:56 4 MG Morphine Sulfate (MoRPHine SULFATE INJ) 2 mg NOW STAT IV 04/05/16 16:45 04/05/16 16:47 DC 04/05/16 16:56 2 MG Metoprolol Tartrate 5 mg 5 mg NOW STAT IV 04/05/16 18:43 04/05/16 18:44 DC 04/05/16 19:00 5 MG Potassium Chloride/Sodium Chloride 1,000 ml @ 100 mls/hr Q10H IV 04/05/16 21:00 04/06/16 13:47 DC 04/06/16 07:24 100 MLS/HR Ceftriaxone Sodium 1 gm/ Dextrose 50 ml @ 100 mls/hr Q24H IV 04/05/16 21:00 04/12/16 19:14 04/06/16 21:17 100 MLS/HR Levofloxacin/Prmx (Levaquin / D5W/ Premixed D5W) 100 ml @ 100 mls/hr Q24H IV 04/05/16 22:00 04/12/16 19:14 04/06/16 21:21 100 MLS/HR Metoprolol Tartrate (Lopressor Iv) 5 mg Q4 IV. 04/06/16 00:00 04/06/16 13:56 DC 04/06/16 11:49 5 MG Metoprolol Tartrate (Lopressor Tab) 25 mg BID PO 04/06/16 13:45 05/06/16 13:44 04/07/16 09:16 25 MG Metoprolol Tartrate (Lopressor Iv) 5 mg Q6 IV. 04/06/16 18:00 05/06/16 17:59 04/06/16 18:26 5 MG Morphine Sulfate (MoRPHine SULFATE INJ) 2 mg STK-MED ONCE .ROUTE 04/06/16 14:38 04/06/16 14:39 DC 04/06/16 14:42 2 MG Dabigatran 75 mg 75 mg BID PO 04/06/16 21:00 05/06/16 20:59 04/07/16 09:16 75 MG Lorazepam/Syringe (Ativan Inj/ Syringe) 0.5 ml @ 0.5 mls/min NOW STAT IV 04/07/16 02:01 04/07/16 02:02 DC 04/07/16 02:13 0.5 MLS/MIN Lorazepam 2 mg 2 mg STK-MED ONCE .ROUTE 04/07/16 02:57 04/07/16 02:58 DC 04/07/16 03:00 2 MG Lorazepam/Syringe (Ativan Inj/ Syringe) 0.5 ml @ 0.5 mls/min NOW STAT IV 04/07/16 08:18 04/07/16 08:25 DC 04/07/16 09:16 0.5 MLS/MIN Subjective He remains confused. I understand he received some Ativan during the evening and night due to agitation. Today's visit was primarily with his daughter-in- law. Review of Systems: Unable to really obtain an accurate review of systems. Vital Signs Vital Signs Past 12 Hours Date Time Temp Pulse Resp B/P Pulse Ox O2 Delivery O2 Flow Rate FiO2 04/07/16 08:27 36.7 64 19 111/70 96 Nasal Cannula 3.0 04/07/16 06:00 114 107/72 04/07/16 05:00 100 Nasal Cannula 3.0 04/07/16 04:55 36.3 114 22 108/62 96 Nasal Cannula 3.0 04/07/16 00:43 96 101/67 04/07/16 00:42 36.3 96 18 101/67 100 3.0 04/07/16 00:05 100 Nasal Cannula 3.0 Assessment & Plan Today's visit was primarily to discuss his condition with the [id number]. I reviewed with her as I reviewed with his son's last evening that systemic therapy would really not be an option at this point. The risks associated with any therapy would outweigh any benefit he may receive. Hospice/supportive care would then seem to be the best way forward. I understand radiation therapy is considering radiating his chest for pain relief. If it's possible to complete the MRI of the brain because of his mentation issues then that might be warranted for the issue of concomitant radiation therapy to the OB/GYN. Recall that a head CT scan in mid March did have a defect in the left frontal area.
--- NOTE | 2016-04-07 10:47 | DIAGNOSTIC IMAGING REPORT ---
MRI OF THE BRAIN WITHOUT AND WITH IV CONTRAST CLINICAL HISTORY: Lung cancer. Evaluate for metastatic disease. COMPARISON STUDY: Head CT March 22, 2016. TECHNIQUE: Utilizing a 1.5 Judith magnet and dedicated coil, multiplanar, multiecho imaging of the brain was performed pre and postcontrast administration. IV administration of 7 mL of Gadavist contrast was uneventful. FINDINGS: This exam is significantly compromised by motion artifact. Ventricular dilatation is unchanged. There is extensive white matter T2 hyperintensity. The basilar cisterns are patent. There are no extra axial collections. Flow-voids for the major intracranial vessels are grossly present. There are old lacunar infarcts within the bilateral basal ganglia. The 7 mm enhancing lesion within the left frontal lobe shown on head CT March 22, 2016 is not confidently identified on this exam. No definite intracranial masses or areas of pathologic enhancement is identified although sensitivity for detection of metastatic disease is significantly diminished on this exam. There is possible diminished T1 signal within the right aspect of the clivus shown on axial T1-weighted image of . IMPRESSION: 1. Exam significantly compromised by motion artifact. The sensitivity for detection of metastatic disease is diminished on this exam. The enhancing left frontal lobe lesion shown on head CT of March 22, 2016 is not visualized on this exam although could be obscured due to artifact. A short-term follow-up MRI of the brain and head CT might be considered. 2. Equivocal area of marrow replacement within the right aspect of the clivus. This is likely within normal limits although a skeletal metastasis could appear similar. Electronically signed by: Chris Pmientel M.D. 04/07/2016 10:45 AM
--- NOTE | 2016-04-07 12:33 | Medical Student: [facility] ---
Med Student Progress Note Date of Service Apr 07, 2016. Subjective Pt evaluation today including: conversation w/ family, physical exam, chart review, lab review, review of studies, conversation w/ it solutions sales consultant Pt is a 70 year old male with a history of Afib and a recently diagnosed R chest mass who is admitted for 1-2 weeks of chest pain, dyspnea, palpitations, cough, and increased confusion. He has continued to c/o R sided chest pain that worsens with movement. He became agitated last night and was unable to undergo brain MRI. He has been somnolent and lethargic since receiving Ativan 2.5 mg last night. Further history is limited secondary to pt's confusion. Review of Systems Notes: ROS unobtainable secondary to pt's confusion and somnolence. Objective Vital Signs Date Time Temp Pulse Resp B/P Pulse Ox O2 Delivery O2 Flow Rate FiO2 04/07/16 11:25 126 109/82 04/07/16 11:22 36.4 126 20 109/82 97 Nasal Cannula 3.0 04/07/16 08:27 36.7 64 19 111/70 96 Nasal Cannula 3.0 04/07/16 06:00 114 107/72 04/07/16 05:00 100 Nasal Cannula 3.0 04/07/16 04:55 36.3 114 22 108/62 96 Nasal Cannula 3.0 04/07/16 00:43 96 101/67 04/07/16 00:42 36.3 96 18 101/67 100 3.0 04/07/16 00:05 100 Nasal Cannula 3.0 04/06/16 20:05 100 Nasal Cannula 3.0 04/06/16 19:51 36.4 99 20 130/76 100 Nasal Cannula 3.0 04/06/16 18:26 111 125/68 04/06/16 16:00 100 Nasal Cannula 3.0 04/06/16 14:58 36.4 111 20 125/68 100 Nasal Cannula 3.0 04/06/16 14:26 129 22 121/81 100 Nasal Cannula 3.0 04/06/16 12:00 97 Nasal Cannula 2.0 04/06/16 11:53 36.6 114 19 137/93 97 Nasal Cannula 2.0 04/06/16 11:49 114 137/93 Physical Exam General Appearance: + mild distress (Pt is sleeping, but is grunting and appears restless. ), + cachetic Neck: + JVD Respiratory/Chest: no respiratory distress, + pertinent finding (Good air movement, but coarse lung sounds with bilateral wheezing. Some accessory muscle usage. ) Cardiovascular: no edema, no gallop, no murmur, + tachycardia, + irregularly irregular Abdomen: normal bowel sounds, soft Extremities: no pedal edema Skin: normal color, warm/dry, no rash Comments: EKG done at 0712 on 04/07/16: Afib at 121 with PVCs. Normal QRS axis and transition. No BBB. No hypertrophy. ST depressions V3-V4. No STEMI or Q waves. Laboratory Results Last 24 Hours Test 04/06/16 12:50 04/07/16 07:15 Total Creatine Kinase 90 U/L Creatine Kinase MB 3.1 ng/ml Creatine Kinase MB Ratio 3.4 Troponin I 0.020 ng/ml White Blood Count 22.34 K/uL Red Blood Count 3.03 M/uL Hemoglobin 8.7 g/dL Hematocrit 28.6 % Mean Corpuscular Volume 94.4 fL Mean Corpuscular Hemoglobin 28.7 pg Mean Corpuscular Hemoglobin Concent 30.4 g/dl Platelet Count 360 K/uL Mean Platelet Volume 9.8 fL Neutrophils (%) (Auto) 83.8 % Lymphocytes (%) (Auto) 7.2 % Monocytes (%) (Auto) 6.2 % Eosinophils (%) (Auto) 2.3 % Basophils (%) (Auto) 0.0 % Neutrophils # (Auto) 18.70 K/uL Lymphocytes # (Auto) 1.60 K/uL Monocytes # (Auto) 1.39 K/uL Eosinophils # (Auto) 0.52 K/uL Basophils # (Auto) 0.01 K/uL RDW Standard Deviation 55.1 fL RDW Coefficient of Variation 16.3 % Immature Granulocyte % (Auto) 0.5 % Immature Granulocyte # (Auto) 0.12 K/uL Spherocytes 1+ Sodium Level 142 mmol/L Potassium Level 4.0 mmol/L Chloride Level 105 mmol/L Carbon Dioxide Level 26 mmol/L Anion Gap 11.0 mmol/L Blood Urea Nitrogen 15 mg/dl Creatinine 0.91 mg/dl Est Creatinine Clear Calc Drug Dose 74.5 ml/min Estimated GFR () 98.6 Estimated GFR (Non- 85.1 BUN/Creatinine Ratio 16.5 Random Glucose 86 mg/dl Calcium Level 8.7 mg/dl Magnesium Level 2.3 mg/dl Assessment and Plan Assessment and Plan: Pt is a 70 year old male with a history of Afib and a recently diagnosed R chest mass who is admitted for 1-2 weeks of chest pain, dyspnea, palpitations, cough, and increased confusion. Imaging shows R lung masses and hilar adenopathy with invasion into the ribs that is highly suggestive of lung cancer , which has slightly progressed from prior study done on 03/22/16. There is also evidence of intrahepatic metastasis. Based on the pt's confusion over the last few weeks, consider brain metastasis as well. He was agitated and unable to undergo brain MRI yesterday. He underwent a lung mass biopsy yesterday by Dr. Hassan. He was in the room with the pt and discussed with the pt's [id number] that pathology is consistent with a non-small cell lung cancer, Stage 4 given evidence of hepatic metastasis. At this point, there is no role for surgery given his overall condition. Dr. Bal was also in the room and discussed that there would likely be limited role for chemotherapy, which the pt would likely not tolerate. Genetic testing of the mass is pending to determine if there is any role for Opdivo. They discussed that the best plan would be for radiation of the chest mass for symptomatic relief, along with possible brain radiation depending on MRI results. Will attempt to repeat brain MRI with Ativan. Radiation oncology has been consulted and is following the case as well. Palliative care was also recommended. Will continue to cover for possible PNA with levofloxacin and ceftriaxone. WBC count has increased to 22.3 with L shift. SpO2 has been in the high 90s-100% on 3 L O2 NC, which we will continue. Pt is also being treated with levalbuterol and Atrovent inhalers. BNP is markedly elevated at 6809, although the pt does not appear to be volume overloaded on exam. Echocardiogram was obtained, which showed normal inferior vena cava size and collapsibility with normal sniff. Borderline LVH and dilated LV. Normal RV size and function. Normal RA and PA pressures. Mild mitral regurgitation. Atrial fibrillation - Pt has been tachycardic and EKG shows atrial fibrillation with ST depressions. Troponin has been negative. - Continue metoprolol for rate control. UA showed no bacteria. Will add urine culture. Currently treated with IV Abx. Stable anemia with Hb of 8.7. Will continue to follow CBC. Continued [facility] stay due to: abnormal vital signs, multiple IV medications needed Continued [facility] stay due to: abnormal vital signs, multiple IV medications needed
[2016-04-07] MEDS ORDERED: PIPERACILL/TAZOBAC IV 4.5 GM in DEXTROSE 5% 100ML 100 ML IV SCH (13:30)
--- NOTE | 2016-04-07 14:04 | DIAGNOSTIC IMAGING REPORT ---
CHEST ONE VIEW PORTABLE CLINICAL HISTORY: Pneumonia COMPARISON STUDY: 04/05/2016 FINDINGS: There is a persistent 8.3 cm right upper lung zone opacity. There is mild right hilar prominence. There is mild underlying interstitial thickening right greater than left. There is no focal pulmonary consolidation on the left. There are no significant pleural effusions.[ IMPRESSION: 1. 8.3 cm right upper lobe mass. 2. Right hilar enlargement suspicious for adenopathy Electronically signed by: Deny Parra M.D. 04/07/2016 2:02 PM
[2016-04-07] MEDS ORDERED: PIPERACILL/TAZOBAC CONSULT ACTIVE PRN (14:30)
[2016-04-07] MEDS ORDERED: PIPERACILL/TAZOBAC IV 3.375 GM in DEXTROSE 5% 100ML IV ONE (14:30)
--- NOTE | 2016-04-07 16:28 | Palliative Care Progress Note ---
Palliative Care Progress Note Date of Service Apr 07, 2016. Subjective Pt evaluation today including: conversation w/ family Assessment and Plan Met briefly with the patient's son, Venkat, and [id number] Lorraine, to introduce myself and my service. The oldest son, Manoj, was not present. We discussed code status and goals of care. Venkat stated that no matter what the goal is going to be for comfort, but they are still wondering if palliative radiation is going to be done. He was also wondering about the MRI results and asking if there was any hope of his father's mental status improving. I did stress to him that it is very important for he and his brother, Manoj, to discuss and decide on a code status and whether or not their father would want CPR and intubation given his metastatic cancer and rapid decline. He said that they would probably decide to make their father a DNR/DNI, but he would like to wait for his brother to make that decision. Better plan of care to come tomorrow, the family is going to call me with a time to meet.
--- NOTE | 2016-04-07 19:16 | Progress Note ---
Subjective Subjective Date of Service: Apr 07, 2016. Pt evaluation today including: conversation w/ family, physical exam, chart review, review of studies, conversation w/ enterprise resource planning consultant (savage), review of inpatient medication list Notes: ROS cant be obtained due to confusion Problem List Medical Problems: (1) Dehydration Status: Acute (2) Lung cancer Status: Acute (3) Rapid atrial fibrillation Status: Acute Physical Exam Vital Signs Vital Signs Past 24 Hours: Date Time Temp Pulse Resp B/P Pulse Ox O2 Delivery O2 Flow Rate FiO2 04/07/16 18:19 118 118/75 04/07/16 16:00 96 Nasal Cannula 3.0 04/07/16 15:44 36.4 115 20 112/86 98 Nasal Cannula 3.0 04/07/16 12:00 96 Nasal Cannula 3.0 04/07/16 11:25 126 109/82 04/07/16 11:22 36.4 126 20 109/82 97 Nasal Cannula 3.0 04/07/16 08:27 36.7 64 19 111/70 96 Nasal Cannula 3.0 04/07/16 08:00 96 Nasal Cannula 3.0 04/07/16 06:00 114 107/72 04/07/16 05:00 100 Nasal Cannula 3.0 04/07/16 04:55 36.3 114 22 108/62 96 Nasal Cannula 3.0 04/07/16 00:43 96 101/67 04/07/16 00:42 36.3 96 18 101/67 100 3.0 04/07/16 00:05 100 Nasal Cannula 3.0 04/06/16 20:05 100 Nasal Cannula 3.0 04/06/16 19:51 36.4 99 20 130/76 100 Nasal Cannula 3.0 Physical Exam: General Appearance: WD/WN, no apparent distress Eyes: bilateral eyes normal inspection ENT: hearing grossly normal, pharynx normal Neck: supple, no JVD Respiratory/Chest: chest non-tender, + rales Cardiovascular: no gallop Abdomen: normal bowel sounds Extremities: non-tender Neurologic/Psychiatric: + disoriented Skin: normal color Medications Medications: Current Inpatient Medications Medications (Trade) Dose Ordered Sig/Juan Alberto Route Start Time Stop Time Status Last Admin Dose Admin Ioversol (Optiray 320) 125 ml UD PRN IV 04/05/16 16:45 04/09/16 16:44 Nitroglycerin (Nitrostat Tab) 0.4 mg UD PRN SL 04/05/16 18:45 05/05/16 18:44 Ondansetron HCl 4 mg 4 mg Q6H PRN IV 04/05/16 18:45 05/05/16 18:44 Acetaminophen 100 ml @ 400 mls/hr Q8H PRN IV 04/05/16 18:45 05/05/16 18:44 Levofloxacin/Prmx (Levaquin / D5W/ Premixed D5W) 100 ml @ 100 mls/hr Q24H IV 04/05/16 22:00 04/12/16 19:14 04/06/16 21:21 100 MLS/HR Ipratropium [place] (Atrovent 0.02% 0.5MG/2.5ML Neb) 0.5 mg Q2H PRN INH 04/05/16 19:15 05/05/16 19:14 Levalbuterol (Xopenex 1.25MG/ 0.5ML Neb) 1.25 mg Q2H PRN INH 04/05/16 19:15 05/05/16 19:14 Metoprolol Tartrate (Lopressor Tab) 25 mg BID PO 04/06/16 13:45 05/06/16 13:44 04/07/16 09:16 25 MG Metoprolol Tartrate (Lopressor Iv) 5 mg Q6 IV. 04/06/16 18:00 05/06/16 17:59 04/07/16 18:19 5 MG Dabigatran 75 mg 75 mg BID PO 04/06/16 21:00 05/06/16 20:59 04/07/16 09:16 75 MG Piperacillin Sod/ Tazobactam Sod/ Dextrose (Zosyn Iv/D5 100ml) 115 ml @ 28.75 mls/ hr Q8H IV 04/07/16 20:00 04/14/16 13:59 Piperacillin Sod/ Tazobactam Sod (Consult) 1 ea UD PRN N/A 04/07/16 14:30 05/07/16 14:29 Laboratory Data Labs: Last 24 Hours Test 04/07/16 07:15 White Blood Count 22.34 K/uL Red Blood Count 3.03 M/uL Hemoglobin 8.7 g/dL Hematocrit 28.6 % Mean Corpuscular Volume 94.4 fL Mean Corpuscular Hemoglobin 28.7 pg Mean Corpuscular Hemoglobin Concent 30.4 g/dl Platelet Count 360 K/uL Mean Platelet Volume 9.8 fL Neutrophils (%) (Auto) 83.8 % Lymphocytes (%) (Auto) 7.2 % Monocytes (%) (Auto) 6.2 % Eosinophils (%) (Auto) 2.3 % Basophils (%) (Auto) 0.0 % Neutrophils # (Auto) 18.70 K/uL Lymphocytes # (Auto) 1.60 K/uL Monocytes # (Auto) 1.39 K/uL Eosinophils # (Auto) 0.52 K/uL Basophils # (Auto) 0.01 K/uL RDW Standard Deviation 55.1 fL RDW Coefficient of Variation 16.3 % Immature Granulocyte % (Auto) 0.5 % Immature Granulocyte # (Auto) 0.12 K/uL Spherocytes 1+ Sodium Level 142 mmol/L Potassium Level 4.0 mmol/L Chloride Level 105 mmol/L Carbon Dioxide Level 26 mmol/L Anion Gap 11.0 mmol/L Blood Urea Nitrogen 15 mg/dl Creatinine 0.91 mg/dl Est Creatinine Clear Calc Drug Dose 74.5 ml/min Estimated GFR () 98.6 Estimated GFR (Non- 85.1 BUN/Creatinine Ratio 16.5 Random Glucose 86 mg/dl Calcium Level 8.7 mg/dl Magnesium Level 2.3 mg/dl Assessment and Plan A 70 yo male comes with MAT with ST depressions in leads V3 and V4 cont on Lopressor 5 mg IV every 4 hours with hold parameters. 2-D echocardiogram with Dopplers: EF 40%. cont pradaxa metoprolol 25 mg bid po Anemia, his hemoglobin upon admission was 8.5. Due to the accompanying MAT and hypoxia, patient was transfused 1 unit of packed RBCs by admitting doctor Metastatic lung cancer to liver- s/p left side lung biopsy by Dr. Hassan, awaiting results. MRI brain: significant motion abnormality, but mass that was seen by CT is not reliably visualized appreciated oncology input, no role of chemoTx, Rad Onc attempted to do palliative radiation of the chest, but due to confusion patient did not tolerate it, will attempt tomorrow suspected health care pneumonia, obstructive PNA, with elevated WBC, cont IV levaquin, add IV zosyn metabolic encephalopathy sec to PNA, cancer and medications (lorazepam and morphine), will continue to avoid medications inducing delirium and cont IV abx with palliative care BPH--continue tamsulosin 0.4 mg by mouth every morning. appreciated palliative consult, family will decide on code status tomorrow and leaning toward comfort plus minus radiation therapy chest, will d/w family tomorrow and disposition situation family updated remains full code for now
[2016-04-07] MEDS: PIPERACILL/TAZOBAC IV 3.375 GM in DEXTROSE 5% 100ML IV SCH (19:47)
[2016-04-07] MEDS: LEVOFLOXACIN / D5W 500 MG in PREMIXED IN D5W 100 ML IV SCH (23:54)
[2016-04-08] VITALS (9 sets, daily range): BP systolic 123–142; BP diastolic 73–82; PULSE 79–126; TEMP 36.2–37; O2SAT 93–100
[2016-04-08] MEDS: PIPERACILL/TAZOBAC IV 3.375 GM in DEXTROSE 5% 100ML IV SCH ×3 (04:14→19:52)
[2016-04-08] MEDS ORDERED: NURSING VERBAL MED ORDER ONE ×2 (05:15→11:30)
[2016-04-08] MEDS ORDERED: LORAZEPAM 2 MG/ML 1 ML VIAL ONE (05:35)
[2016-04-08] MEDS ORDERED: LORAZEPAM INJ 1 MG in SYRINGE 0.5 ML IV STA (05:36)
[2016-04-08] MEDS: METOPROLOL TARTRATE 1 MG/ML VIAL IV. SCH (05:40)
[2016-04-08] MEDS: DABIGATRAN ELEXILATE 75 MG CAP PO SCH (07:57)
[2016-04-08] MEDS: METOPROLOL TARTRATE 25 MG TAB PO SCH ×2 (07:57→19:54)
[2016-04-08 07:58] LABS: BASO ABS # 0.01 K/uL (0-0.2); COMPLETE YES; EOS % 1.4 %; HEMATOCRIT 29.4 % (42-52); IG% 0.4 %; LYMPH % 4.7 %; LYMPH ABS # 1.03 K/uL (1.2-3.4); MEAN CELL VOLUME 95.1 fL (80-100); MEAN CORPUSCULAR HEMOGLOBIN 29.1 pg (25-34); MEAN CORPUSCULAR HGB CONC 30.6 g/dl (32-36); MEAN PLATELET VOLUME 9.7 fL (7.4-10.4); MONO % 6.3 %; NEUT % 87.2 %; PLATELET COUNT 356 K/uL (130-400); RED BLOOD COUNT 3.09 M/uL (4.7-6.1); WHITE BLOOD COUNT 21.89 K/uL (4.8-10.8)
[2016-04-08 08:31] LABS: BUN/CREATININE RATIO 17.2 (10-20); CREATININE 0.99 mg/dl (0.60-1.40); MAGNESIUM 2.3 mg/dl (1.8-2.4); POTASSIUM 4.1 mmol/L (3.5-5.1)
--- NOTE | 2016-04-08 11:31 | Palliative Care Consultation ---
Consultation Date of Consultation: Apr 08, 2016. Requesting Physician: Dr. West Attending Physician: Dr. West Reason for Consultation: Goals of care, symptom management History of Present Illness This 70 year old male patient presented to the ED three days ago with complaints of one to two weeks of chest pain, dyspnea, palpitations, cough, and increased confusion. Imaging showed right lung masses and hilar adenopathy with invasion into the ribs-- highly suspicious of lung cancer, slightly progressed since last scan on 03/22/16; also evidence of intrahepatic mets. No PE on CTA of chest. Biopsy of the lung was performed by Dr. 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 The patient has had a very rapid decline over the last couple days. He is unable to ambulate, eat or drink, and is extremely confused/disoriented. Heme/onc saw patient and said there is no role for chemotherapy. Rad/onc saw patient and said that if the patient is able to tolerate it, he could get a course of palliative radiation for pain management. Radiation was attempted yesterday, but patient unable to stay still. Palliative care consulted to assist with establishing goals of care. Lengthy family meeting held today at 1030 with myself, medical student Antoine Salazar, Dr. West, Venkat Sabi (son), Manoj Celestin (son/surrogate decision maker), and [id number], Lorraine Byrddwell. The family is all in agreement that they would like to make the patient a DNR/DNI, and pursue comfort measures. They would like to continue antibiotics for now to see if the patient's mental status improves at all, which I think is fair. Over the next 24 hours, assess for any improvement. Ultimate goal will be for the patient to go to SNF. the patient is confused/disoriented. Able to say he is not in pain right now, but family indicates that he does have pain with repositioning or movement in the bed. There are audible secretions and upper airway wheezes, the rest of his lung kwok are coarse. He remains on room air. I spoke with the family about symptom management and they are okay with this. See plan. Past Medical/Surgical History Medical History: [place] COPD CAD Skin CA A fib HTN DVT Pulmonary nodule Alcoholism Smoker CHF with EF 40-45% Social History Smoking Status: Former Smoker History of Alcohol Use: No Drug Use: none Marital Status: Housing Status: lives with family Occupation Status: retired Review of Systems unable to obtain Allergies Coded Allergies: No Known Allergies (Unverified , 04/05/16) Medications Current Inpatient Medications Medications (Trade) Dose Ordered Sig/Juan Alberto Route Start Time Stop Time Status Last Admin Dose Admin Ioversol (Optiray 320) 125 ml UD PRN IV 04/05/16 16:45 04/09/16 16:44 Nitroglycerin (Nitrostat Tab) 0.4 mg UD PRN SL 04/05/16 18:45 05/05/16 18:44 Ondansetron HCl 4 mg 4 mg Q6H PRN IV 04/05/16 18:45 05/05/16 18:44 Acetaminophen 100 ml @ 400 mls/hr Q8H PRN IV 04/05/16 18:45 05/05/16 18:44 Levofloxacin/Prmx (Levaquin / D5W/ Premixed D5W) 100 ml @ 100 mls/hr Q24H IV 04/05/16 22:00 04/12/16 19:14 04/07/16 23:54 100 MLS/HR Ipratropium [place] (Atrovent 0.02% 0.5MG/2.5ML Neb) 0.5 mg Q2H PRN INH 04/05/16 19:15 05/05/16 19:14 Levalbuterol (Xopenex 1.25MG/ 0.5ML Neb) 1.25 mg Q2H PRN INH 04/05/16 19:15 05/05/16 19:14 Metoprolol Tartrate 25 mg 25 mg BID PO 04/06/16 13:45 05/06/16 13:44 04/08/16 07:57 25 MG Piperacillin Sod/ Tazobactam Sod/ Dextrose (Zosyn Iv/D5 100ml) 115 ml @ 28.75 mls/ hr Q8H IV 04/07/16 20:00 04/14/16 13:59 04/08/16 04:14 28.75 MLS/HR Piperacillin Sod/ Tazobactam Sod (Consult) 1 ea UD PRN N/A 04/07/16 14:30 05/07/16 14:29 Miscellaneous Information (Nursing Verbal Med Order) 1 ea ONE ONCE N/A 04/08/16 11:30 04/08/16 11:31 UNV Physical Exam Date Time Temp Pulse Resp B/P Pulse Ox O2 Delivery O2 Flow Rate FiO2 04/08/16 11:19 36.4 109 20 133/80 99 Nasal Cannula 3.0 04/08/16 08:17 36.9 115 20 130/78 96 Nasal Cannula 3.0 04/08/16 07:45 94 Nasal Cannula 3.0 04/08/16 05:40 87 144/90 04/08/16 04:00 Nasal Cannula 3.0 04/08/16 03:05 36.7 79 20 123/73 94 Nasal Cannula 3.0 04/08/16 00:00 Nasal Cannula 3.0 04/07/16 23:59 118 141/77 04/07/16 23:00 36.7 93 18 130/80 94 Nasal Cannula 3.0 04/07/16 22:01 137/78 04/07/16 19:51 36.2 110 20 145/78 99 Nasal Cannula 3.0 04/07/16 19:15 Nasal Cannula 3.0 04/07/16 18:19 118 118/75 04/07/16 16:00 96 Nasal Cannula 3.0 04/07/16 15:44 36.4 115 20 112/86 98 Nasal Cannula 3.0 04/07/16 12:00 96 Nasal Cannula 3.0 General Appearance: no apparent distress, + pertinent finding (restless in bed) Neck: trachea midline Respiratory: no accessory muscle use, + crackles (bilateral bases), + rhonchi ( coarse), + wheezing (upper airway) Cardiovascular: regular rate, rhythm, no edema, + normal peripheral pulses Abdomen: normal bowel sounds, non tender, soft Musculoskeletal: poor tone Neurologic/Psychiatric: alert, + disoriented Laboratory Results Last 24 Hours Test 04/08/16 07:30 White Blood Count 21.89 K/uL Red Blood Count 3.09 M/uL Hemoglobin 9.0 g/dL Hematocrit 29.4 % Mean Corpuscular Volume 95.1 fL Mean Corpuscular Hemoglobin 29.1 pg Mean Corpuscular Hemoglobin Concent 30.6 g/dl Platelet Count 356 K/uL Mean Platelet Volume 9.7 fL Neutrophils (%) (Auto) 87.2 % Lymphocytes (%) (Auto) 4.7 % Monocytes (%) (Auto) 6.3 % Eosinophils (%) (Auto) 1.4 % Basophils (%) (Auto) 0.0 % Neutrophils # (Auto) 19.08 K/uL Lymphocytes # (Auto) 1.03 K/uL Monocytes # (Auto) 1.38 K/uL Eosinophils # (Auto) 0.30 K/uL Basophils # (Auto) 0.01 K/uL RDW Standard Deviation 55.2 fL RDW Coefficient of Variation 16.4 % Immature Granulocyte % (Auto) 0.4 % Immature Granulocyte # (Auto) 0.09 K/uL Sodium Level 142 mmol/L Potassium Level 4.1 mmol/L Chloride Level 105 mmol/L Carbon Dioxide Level 28 mmol/L Anion Gap 9.0 mmol/L Blood Urea Nitrogen 17 mg/dl Creatinine 0.99 mg/dl Est Creatinine Clear Calc Drug Dose 68.7 ml/min Estimated GFR () 89.1 Estimated GFR (Non- 76.8 BUN/Creatinine Ratio 17.2 Random Glucose 98 mg/dl Calcium Level 9.0 mg/dl Magnesium Level 2.3 mg/dl Assessment & Plan Palliative Performance Scale: 20 % (minimal PO intake, altered mental status, bed-bound, total care) Problem list: Altered mental status- metabolic encephalopathy vs. dementia Abnormal airway secretions Poor PO intake/malnutrition Lung cancer Pneumonia Goals of care Palliative care plan: After a family meeting, the goal is for comfort. They have decided against palliative radiation with the patient's current mental status. Plan at this time is to transfer to , DNR/DNI, continue antibiotics for now. Roxanol 5mg PO Q3h PRN and atropine drops PRN are ordered. POLST form is completed and signed by physician-- copy in chart and original at patient's bedside. Ultimately, patient will need placement into SNF. Will continue to follow. Thank you kindly for this consult.
[2016-04-08] MEDS: MoRPHine SULFATE 5 MG/0.25 ML UDP PO PRN ×4 (12:00→23:58)
[2016-04-08] MEDS: ATROPINE SULFATE 1% OP SOLN 2 ML BTL OP PRN ×3 (12:00→23:58)
--- NOTE | 2016-04-08 12:07 | Medical Student: [facility] ---
Med Student Progress Note Date of Service Apr 08, 2016. Subjective Pt evaluation today including: conversation w/ family, physical exam, chart review, lab review, review of studies Pt is a 70 year old male with a history of Afib and a recently diagnosed R chest mass who is admitted for 1-2 weeks of chest pain, dyspnea, palpitations, cough, and increased confusion. Per family he has continued to c/o R sided chest pain but mainly with movement. He has remained lethargic and somnolent, but restless appearing. He was unable to undergo radiation therapy nor brain MRI yesterday due to inability to stay still. Further history is limited secondary to pt's confusion. Review of Systems Notes: ROS unobtainable secondary to pt's confusion and somnolence. Objective Vital Signs Date Time Temp Pulse Resp B/P Pulse Ox O2 Delivery O2 Flow Rate FiO2 04/08/16 11:19 36.4 109 20 133/80 99 Nasal Cannula 3.0 04/08/16 08:17 36.9 115 20 130/78 96 Nasal Cannula 3.0 04/08/16 07:45 94 Nasal Cannula 3.0 04/08/16 05:40 87 144/90 04/08/16 04:00 Nasal Cannula 3.0 04/08/16 03:05 36.7 79 20 123/73 94 Nasal Cannula 3.0 04/08/16 00:00 Nasal Cannula 3.0 04/07/16 23:59 118 141/77 04/07/16 23:00 36.7 93 18 130/80 94 Nasal Cannula 3.0 04/07/16 22:01 137/78 04/07/16 19:51 36.2 110 20 145/78 99 Nasal Cannula 3.0 04/07/16 19:15 Nasal Cannula 3.0 04/07/16 18:19 118 118/75 04/07/16 16:00 96 Nasal Cannula 3.0 04/07/16 15:44 36.4 115 20 112/86 98 Nasal Cannula 3.0 04/07/16 12:00 96 Nasal Cannula 3.0 Physical Exam General Appearance: + cachetic, + pertinent finding (Pt is lethargic and restless appearing. ) Neck: no JVD Respiratory/Chest: no respiratory distress, + accessory muscle use, + plerual rub, + pertinent finding (Coarse and rattling breath sounds with wheezing. ) Cardiovascular: no edema, no gallop, no JVD, no murmur, + irregularly irregular Abdomen: normal bowel sounds, soft Extremities: no pedal edema Neurologic/Psychiatric: + disoriented (Pt is lethargic and somnolent. ), + pertinent finding Skin: normal color, warm/dry, no rash Comments: CXR: FINDINGS: There is a persistent 8.3 cm right upper lung zone opacity. There is mild right hilar prominence. There is mild underlying interstitial thickening right greater than left. There is no focal pulmonary consolidation on the left. There are no significant pleural effusions.[ IMPRESSION: 1. 8.3 cm right upper lobe mass. 2. Right hilar enlargement suspicious for adenopathy Laboratory Results Last 24 Hours Test 04/08/16 07:30 White Blood Count 21.89 K/uL Red Blood Count 3.09 M/uL Hemoglobin 9.0 g/dL Hematocrit 29.4 % Mean Corpuscular Volume 95.1 fL Mean Corpuscular Hemoglobin 29.1 pg Mean Corpuscular Hemoglobin Concent 30.6 g/dl Platelet Count 356 K/uL Mean Platelet Volume 9.7 fL Neutrophils (%) (Auto) 87.2 % Lymphocytes (%) (Auto) 4.7 % Monocytes (%) (Auto) 6.3 % Eosinophils (%) (Auto) 1.4 % Basophils (%) (Auto) 0.0 % Neutrophils # (Auto) 19.08 K/uL Lymphocytes # (Auto) 1.03 K/uL Monocytes # (Auto) 1.38 K/uL Eosinophils # (Auto) 0.30 K/uL Basophils # (Auto) 0.01 K/uL RDW Standard Deviation 55.2 fL RDW Coefficient of Variation 16.4 % Immature Granulocyte % (Auto) 0.4 % Immature Granulocyte # (Auto) 0.09 K/uL Sodium Level 142 mmol/L Potassium Level 4.1 mmol/L Chloride Level 105 mmol/L Carbon Dioxide Level 28 mmol/L Anion Gap 9.0 mmol/L Blood Urea Nitrogen 17 mg/dl Creatinine 0.99 mg/dl Est Creatinine Clear Calc Drug Dose 68.7 ml/min Estimated GFR () 89.1 Estimated GFR (Non- 76.8 BUN/Creatinine Ratio 17.2 Random Glucose 98 mg/dl Calcium Level 9.0 mg/dl Magnesium Level 2.3 mg/dl Assessment and Plan Assessment and Plan: Pt is a 70 year old male with a history of Afib and a recently diagnosed R chest mass who is admitted for 1-2 weeks of chest pain, dyspnea, palpitations, cough, and increased confusion. 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 Dr. Hassan of CT surgery and Dr. Bal of hem/onc have consulted. Given the stage 4 disease and his overall deterioration, he is not a good candidate for surgery or chemotherapy. An attempt was made to repeat the brain MRI with Ativan to assess for metastasis, but the pt was not able to stay still. Radiation was also attempted for the chest mass, but he was not able to tolerate this either. Palliative care has met with the pt and his family, and they have decided to proceed with comfort care only, DNR/DNI. They do not wish to attempt further radiation treatments as the pt does not seem to be in pain while at rest and they would rather avoid causing him pain by moving him. They do wish to continue IV fluids and Abx while admitted to treat for possible PNA. Possible PNA - ceftriaxone was d/c'ed and Zosyn was started. WBC count is slightly improved from yesterday. SpO2 has been in the mid 90s on 3 L O2 NC, which we will continue. Pt is also being treated with levalbuterol and Atrovent inhalers. Atrial fibrillation - Tachycardia has improved. EKG showed atrial fibrillation with ST depressions. Troponin has been negative. - Continue metoprolol 25 mg PO for rate control. - Will d/c IV metoprolol. - Will discontinue Pradaxa. UA showed no bacteria. Currently treated with IV Abx.
--- NOTE | 2016-04-08 20:15 | Progress Note ---
Subjective Subjective Date of Service: Apr 08, 2016. Pt evaluation today including: conversation w/ family, physical exam, chart review, review of studies, review of inpatient medication list Notes: ROS cant be obtained due to confusion Problem List Medical Problems: (1) Dehydration Status: Acute (2) Lung cancer Status: Acute (3) Rapid atrial fibrillation Status: Acute Physical Exam Vital Signs Vital Signs Past 24 Hours: Date Time Temp Pulse Resp B/P Pulse Ox O2 Delivery O2 Flow Rate FiO2 04/08/16 16:30 36.2 106 20 142/76 98 2.0 04/08/16 15:07 100 Nasal Cannula 2.0 04/08/16 13:47 37.0 108 24 123/77 100 Nasal Cannula 2.0 04/08/16 11:19 36.4 109 20 133/80 99 Nasal Cannula 3.0 04/08/16 08:17 36.9 115 20 130/78 96 Nasal Cannula 3.0 04/08/16 07:45 94 Nasal Cannula 3.0 04/08/16 05:40 87 144/90 04/08/16 04:00 Nasal Cannula 3.0 04/08/16 03:05 36.7 79 20 123/73 94 Nasal Cannula 3.0 04/08/16 00:00 Nasal Cannula 3.0 04/07/16 23:59 118 141/77 04/07/16 23:00 36.7 93 18 130/80 94 Nasal Cannula 3.0 04/07/16 22:01 137/78 Physical Exam: General Appearance: WD/WN, no apparent distress Eyes: bilateral eyes normal inspection ENT: pharynx normal Neck: supple Respiratory/Chest: chest non-tender, + crackles Cardiovascular: no murmur Abdomen: normal bowel sounds Extremities: non-tender Neurologic/Psychiatric: alert Medications Medications: Current Inpatient Medications Medications (Trade) Dose Ordered Sig/Juan Alberto Route Start Time Stop Time Status Last Admin Dose Admin Ioversol (Optiray 320) 125 ml UD PRN IV 04/05/16 16:45 04/09/16 16:44 Nitroglycerin (Nitrostat Tab) 0.4 mg UD PRN SL 04/05/16 18:45 05/05/16 18:44 Ondansetron HCl 4 mg 4 mg Q6H PRN IV 04/05/16 18:45 05/05/16 18:44 Acetaminophen 100 ml @ 400 mls/hr Q8H PRN IV 04/05/16 18:45 05/05/16 18:44 Levofloxacin/Prmx (Levaquin / D5W/ Premixed D5W) 100 ml @ 100 mls/hr Q24H IV 04/05/16 22:00 04/12/16 19:14 04/07/16 23:54 100 MLS/HR Ipratropium [place] (Atrovent 0.02% 0.5MG/2.5ML Neb) 0.5 mg Q2H PRN INH 04/05/16 19:15 05/05/16 19:14 Levalbuterol (Xopenex 1.25MG/ 0.5ML Neb) 1.25 mg Q2H PRN INH 04/05/16 19:15 05/05/16 19:14 Metoprolol Tartrate 25 mg 25 mg BID PO 04/06/16 13:45 05/06/16 13:44 04/08/16 07:57 25 MG Piperacillin Sod/ Tazobactam Sod/ Dextrose (Zosyn Iv/D5 100ml) 115 ml @ 28.75 mls/ hr Q8H IV 04/07/16 20:00 04/14/16 13:59 04/08/16 19:52 28.75 MLS/HR Piperacillin Sod/ Tazobactam Sod (Consult) 1 ea UD PRN N/A 04/07/16 14:30 05/07/16 14:29 Morphine Sulfate (Roxanol Oral Soln) 5 mg Q3H PRN PO 04/08/16 11:30 04/22/16 11:29 04/08/16 19:53 5 MG Atropine Sulfate (ATROPINE SULFATE 1% Op Soln 2 ML) 4 drops Q4H PRN OP 04/08/16 11:30 05/08/16 11:29 04/08/16 19:52 4 DROPS Laboratory Data Labs: Last 24 Hours Test 04/08/16 07:30 White Blood Count 21.89 K/uL Red Blood Count 3.09 M/uL Hemoglobin 9.0 g/dL Hematocrit 29.4 % Mean Corpuscular Volume 95.1 fL Mean Corpuscular Hemoglobin 29.1 pg Mean Corpuscular Hemoglobin Concent 30.6 g/dl Platelet Count 356 K/uL Mean Platelet Volume 9.7 fL Neutrophils (%) (Auto) 87.2 % Lymphocytes (%) (Auto) 4.7 % Monocytes (%) (Auto) 6.3 % Eosinophils (%) (Auto) 1.4 % Basophils (%) (Auto) 0.0 % Neutrophils # (Auto) 19.08 K/uL Lymphocytes # (Auto) 1.03 K/uL Monocytes # (Auto) 1.38 K/uL Eosinophils # (Auto) 0.30 K/uL Basophils # (Auto) 0.01 K/uL RDW Standard Deviation 55.2 fL RDW Coefficient of Variation 16.4 % Immature Granulocyte % (Auto) 0.4 % Immature Granulocyte # (Auto) 0.09 K/uL Sodium Level 142 mmol/L Potassium Level 4.1 mmol/L Chloride Level 105 mmol/L Carbon Dioxide Level 28 mmol/L Anion Gap 9.0 mmol/L Blood Urea Nitrogen 17 mg/dl Creatinine 0.99 mg/dl Est Creatinine Clear Calc Drug Dose 68.7 ml/min Estimated GFR () 89.1 Estimated GFR (Non- 76.8 BUN/Creatinine Ratio 17.2 Random Glucose 98 mg/dl Calcium Level 9.0 mg/dl Magnesium Level 2.3 mg/dl Assessment and Plan A 70 yo male comes with MAT with ST depressions in leads V3 and V4 2-D echocardiogram with Dopplers: EF 40%. metoprolol 25 mg bid po Anemia, his hemoglobin upon admission was 8.5. Due to the accompanying MAT and hypoxia, patient was transfused 1 unit of packed RBCs by admitting doctor Metastatic lung cancer to liver- s/p left side lung biopsy by Dr. Hassan, Pathology report consistent with non small lung carcinoma, low grade MRI brain: significant motion abnormality, but mass that was seen by CT is not reliably visualized appreciated oncology input, no role of chemoTx, Rad Onc attempted to do palliative radiation of the chest, but due to confusion patient did not tolerate it, family decided against palliative radiation suspected health care pneumonia, obstructive PNA, with elevated WBC, cont IV levaquin, add IV zosyn, continue as per family metabolic encephalopathy sec to PNA, cancer and medications (lorazepam and morphine IV), will continue to avoid medications inducing delirium and cont IV abx with palliative care BPH--continue tamsulosin 0.4 mg by mouth every morning. appreciated palliative consult, met with family, continue comfort measures, DNR patient likely will need to be d/jazzy to SNF with comfort measures
[2016-04-08] MEDS: LEVOFLOXACIN / D5W 500 MG in PREMIXED IN D5W 100 ML IV SCH (22:00)
[2016-04-09 00:15] VITALS: BP 127/71; PULSE 123; TEMP 36.3; O2SAT 100
[2016-04-09] MEDS: PIPERACILL/TAZOBAC IV 3.375 GM in DEXTROSE 5% 100ML IV SCH ×2 (03:43→12:00)
[2016-04-09] MEDS: MoRPHine SULFATE 5 MG/0.25 ML UDP PO PRN (03:46)
[2016-04-09 04:00] VITALS: BP 117/68; PULSE 116; TEMP 36.6; O2SAT 94
[2016-04-09 08:26] VITALS: BP 115/72; PULSE 124; TEMP 37; O2SAT 100
[2016-04-09] MEDS: METOPROLOL TARTRATE 25 MG TAB PO SCH (08:37)
[2016-04-09] MEDS ORDERED: NURSING VERBAL MED ORDER ONE (08:45)
--- NOTE | 2016-04-09 09:25 | Medical Student: [facility] ---
Med Student Progress Note Date of Service Apr 09, 2016. Subjective Pt evaluation today including: physical exam, chart review, lab review, review of studies Pt is a 70 year old male with a history of Afib and a recently diagnosed R chest mass who is admitted for dyspnea, chest pain, and confusion related to stage IV lung cancer. He has remained lethargic, altered, and restless. Palliative care met with the family yesterday and the plan is to proceed with DNR/DNI, comfort care measures, including IVF and Abx at this time. Nursing reports that there was an attempt to suction his airway yesterday due to congested breathing, but there was no return. Further history is limited secondary to pt's altered mental status. Review of Systems Notes: ROS unobtainable secondary to pt's altered mental status. Objective Vital Signs Date Time Temp Pulse Resp B/P Pulse Ox O2 Delivery O2 Flow Rate FiO2 04/09/16 08:26 37.0 124 20 115/72 100 Nasal Cannula 3.0 04/09/16 04:00 36.6 116 16 117/68 94 04/09/16 00:15 36.3 123 20 127/71 100 Nasal Cannula 2.0 04/09/16 00:00 Nasal Cannula 2.0 04/08/16 22:29 84 20 93 Nasal Cannula 2.0 04/08/16 20:23 36.3 126 20 132/82 99 Nasal Cannula 2.0 04/08/16 20:00 Nasal Cannula 2.0 04/08/16 16:30 36.2 106 20 142/76 98 2.0 04/08/16 15:07 100 Nasal Cannula 2.0 04/08/16 13:47 37.0 108 24 123/77 100 Nasal Cannula 2.0 04/08/16 11:19 36.4 109 20 133/80 99 Nasal Cannula 3.0 Physical Exam General Appearance: + moderate distress, + cachetic, + pertinent finding (Pt is altered and lethargic. He is awake, but does not respond to voice. ) Neck: no JVD Respiratory/Chest: + accessory muscle use, + pertinent finding (Increased work of breathing. Coarse breath sounds throughout with pleural rub and wheezing, worse in the R lung kwok. Congested sounded breathing. ) Cardiovascular: no edema, no JVD, no murmur, + tachycardia, + irregularly irregular Abdomen: normal bowel sounds, soft Extremities: no pedal edema Skin: + pallor Medications Medications Administered Medications (Trade) Dose Ordered Sig/Juan Alberto Route Start Time Stop Time Status Last Admin Dose Admin Sodium Chloride 250 ml @ 999 mls/hr Q16M STAT IV 04/05/16 15:10 04/05/16 15:25 DC 04/05/16 15:52 999 MLS/HR Sodium Chloride 1,000 ml @ 100 mls/hr Q10H STAT IV 04/05/16 15:10 04/05/16 20:05 DC 04/05/16 15:52 100 MLS/HR Sodium Chloride (Nss 1000ml) 1,000 ml @ 999 mls/hr Q1H1M STAT IV 04/05/16 15:54 04/05/16 16:54 DC 04/05/16 15:58 999 MLS/HR Ondansetron HCl (Zofran Inj) 4 mg NOW STAT IV 04/05/16 16:45 04/05/16 16:47 DC 04/05/16 16:56 4 MG Morphine Sulfate (MoRPHine SULFATE INJ) 2 mg NOW STAT IV 04/05/16 16:45 04/05/16 16:47 DC 04/05/16 16:56 2 MG Metoprolol Tartrate 5 mg 5 mg NOW STAT IV 04/05/16 18:43 04/05/16 18:44 DC 04/05/16 19:00 5 MG Potassium Chloride/Sodium Chloride 1,000 ml @ 100 mls/hr Q10H IV 04/05/16 21:00 04/06/16 13:47 DC 04/06/16 07:24 100 MLS/HR Ceftriaxone Sodium 1 gm/ Dextrose 50 ml @ 100 mls/hr Q24H IV 04/05/16 21:00 04/07/16 13:32 DC 04/06/16 21:17 100 MLS/HR Levofloxacin/Prmx (Levaquin / D5W/ Premixed D5W) 100 ml @ 100 mls/hr Q24H IV 04/05/16 22:00 04/12/16 19:14 04/08/16 22:00 100 MLS/HR Ipratropium [place] (Atrovent 0.02% 0.5MG/2.5ML Neb) 0.5 mg Q2H PRN INH 04/05/16 19:15 05/05/16 19:14 04/08/16 22:28 0.5 MG Levalbuterol (Xopenex 1.25MG/ 0.5ML Neb) 1.25 mg Q2H PRN INH 04/05/16 19:15 05/05/16 19:14 04/08/16 22:28 1.25 MG Metoprolol Tartrate (Lopressor Iv) 5 mg Q4 IV. 04/06/16 00:00 04/06/16 13:56 DC 04/06/16 11:49 5 MG Metoprolol Tartrate (Lopressor Tab) 25 mg BID PO 04/06/16 13:45 05/06/16 13:44 04/08/16 07:57 25 MG Metoprolol Tartrate (Lopressor Iv) 5 mg Q6 IV. 04/06/16 18:00 04/08/16 10:57 DC 04/08/16 05:40 5 MG Morphine Sulfate (MoRPHine SULFATE INJ) 2 mg STK-MED ONCE .ROUTE 04/06/16 14:38 04/06/16 14:39 DC 04/06/16 14:42 2 MG Dabigatran 75 mg 75 mg BID PO 04/06/16 21:00 04/08/16 10:59 DC 04/08/16 07:57 75 MG Lorazepam/Syringe (Ativan Inj/ Syringe) 0.5 ml @ 0.5 mls/min NOW STAT IV 04/07/16 02:01 04/07/16 02:02 DC 04/07/16 02:13 0.5 MLS/MIN Lorazepam 2 mg 2 mg STK-MED ONCE .ROUTE 04/07/16 02:57 04/07/16 02:58 DC 04/07/16 03:00 2 MG Lorazepam 0.5 mg/ Syringe 0.5 ml @ 0.5 mls/min NOW STAT IV 04/07/16 08:18 04/07/16 08:25 DC 04/07/16 09:16 0.5 MLS/MIN Piperacillin Sod/ Tazobactam Sod 3.375 gm/Dextrose 115 ml @ 230 mls/hr TODAY@1430 ONCE IV 04/07/16 14:30 04/07/16 14:59 DC 04/07/16 14:45 230 MLS/HR Piperacillin Sod/ Tazobactam Sod/ Dextrose (Zosyn Iv/D5 100ml) 115 ml @ 28.75 mls/ hr Q8H IV 04/07/16 20:00 04/14/16 13:59 04/09/16 03:43 28.75 MLS/HR Lorazepam (Ativan Inj) 2 mg STK-MED ONCE .ROUTE 04/08/16 05:35 04/08/16 05:36 DC 04/08/16 05:41 2 MG Morphine Sulfate (Roxanol Oral Soln) 5 mg Q3H PRN PO 04/08/16 11:30 04/22/16 11:29 04/09/16 03:46 5 MG Atropine Sulfate (ATROPINE SULFATE 1% Op Soln 2 ML) 4 drops Q4H PRN OP 04/08/16 11:30 05/08/16 11:29 04/09/16 09:35 4 DROPS Scopolamine (Transderm-Scop Patch) 1.5 mg Q72H TD 04/09/16 09:15 05/09/16 09:14 04/09/16 09:34 1.5 MG Assessment and Plan Assessment and Plan: Pt is a 70 year old male with a history of Afib and a recently diagnosed R chest mass who is admitted for dyspnea, chest pain, and confusion related to stage IV lung cancer. 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 Dr. Hassan of CT surgery and Dr. Bal of hem/onc have consulted. Given the stage 4 disease and his overall deterioration, he is not a good candidate for surgery or chemotherapy. An attempt was made to repeat the brain MRI with Ativan to assess for metastasis, but the pt was not able to stay still. Radiation was also attempted for the chest mass, but he was not able to tolerate this either. Palliative care has met with the pt and his family, and they have decided to proceed with comfort care only, DNR/DNI. They do not wish to attempt further radiation treatments as the pt does not seem to be in pain while at rest and they would rather avoid causing him pain by moving him. Will continue to Tx with IV morphine 5 mg q3h for pain. Possible PNA - Family does wish to continue IV fluids and Abx while admitted to treat for possible PNA. Ceftriaxone was d/c'ed and Zosyn was started. Leukocytosis still present yesterday. SpO2 has been in the low 90s on 3 L O2 NC , which we will continue. Pt is also being treated with levalbuterol and Atrovent inhalers. Atrial fibrillation - Pt has been tachycardic, IV metoprolol was discontinued. EKG showed atrial fibrillation with ST depressions. Troponin has been negative. - Continue metoprolol 25 mg PO for rate control. -Pradaxa was discontinued. Plan for discharge with hospice, likely to a senior living facility as per family's wishes. Reviewed: Pt Seen/Exam by Me History See my note for details. Assessment/Plan A 70 yo male comes with MAT with ST depressions in leads V3 and V4 2-D echocardiogram with Dopplers: EF 40%. metoprolol 25 mg bid po Anemia, his hemoglobin upon admission was 8.5. Due to the accompanying MAT and hypoxia, patient was transfused 1 unit of packed RBCs by admitting doctor Metastatic lung cancer to liver- s/p left side lung biopsy by Dr. Hassan, Pathology report consistent with non small lung carcinoma, low grade MRI brain: significant motion abnormality, but mass that was seen by CT is not reliably visualized appreciated oncology input, no role of chemoTx, Rad Onc attempted to do palliative radiation of the chest, but due to confusion patient did not tolerate it, family decided against palliative radiation suspected health care pneumonia, obstructive PNA, with elevated WBC, cont IV levaquin, add IV zosyn, continue as per family metabolic encephalopathy sec to PNA, cancer and medications (lorazepam and morphine IV), will continue to avoid medications inducing delirium and cont IV abx with palliative care BPH--continue tamsulosin 0.4 mg by mouth every morning. appreciated palliative consult, met with family, continue comfort measures, DNR Plan was for patient to be d/jazzy to SNF with comfort measures, however given rapid decline overnight, it seems reasonable to keep him at [facility] and re-eval on Tuesday if he does not continue to decline. Long discussion with family. They would like to stop abx at this time and move to full comfort care D/C VSS, meds Morphine, ativan, etc
[2016-04-09] MEDS: SCOPOLAMINE 1.5 MG TDSY TD SCH (09:34)
[2016-04-09] MEDS: ATROPINE SULFATE 1% OP SOLN 2 ML BTL OP PRN (09:35)
--- NOTE | 2016-04-09 13:21 | Progress Note ---
Subjective Date of Service: Apr 09, 2016. Subjective Pt evaluation today including: conversation w/ family, chart review, lab review Pt has had a further and somewhat rapid decline overnight per nursing and family. He is not responding to them and only opens his eyes sporadically. He has not taken any PO. They do not think he is in pain, however he does spasm on occasion. He was having upper airway gurgling earlier, but this was helped with scop patch. No fevers, VSS. No emesis or diarrhea. Unable to obtain further ROS due to mental status. Problem List Medical Problems: (1) Dehydration Status: Acute (2) Lung cancer Status: Acute (3) Rapid atrial fibrillation Status: Acute Objective Vital Signs Date Time Temp Pulse Resp B/P Pulse Ox O2 Delivery O2 Flow Rate FiO2 04/09/16 08:26 37.0 124 20 115/72 100 Nasal Cannula 3.0 04/09/16 08:25 Nasal Cannula 04/09/16 04:00 36.6 116 16 117/68 94 04/09/16 00:15 36.3 123 20 127/71 100 Nasal Cannula 2.0 04/09/16 00:00 Nasal Cannula 2.0 04/08/16 22:29 84 20 93 Nasal Cannula 2.0 04/08/16 20:23 36.3 126 20 132/82 99 Nasal Cannula 2.0 04/08/16 20:00 Nasal Cannula 2.0 04/08/16 16:30 36.2 106 20 142/76 98 2.0 04/08/16 15:07 100 Nasal Cannula 2.0 04/08/16 13:47 37.0 108 24 123/77 100 Nasal Cannula 2.0 Physical Exam General Appearance: WD/WN, no apparent distress Respiratory/Chest: no respiratory distress Cardiovascular: regular rate, rhythm, no edema Abdomen: non tender, soft Extremities: non-tender, no pedal edema Neurologic/Psychiatric: + pertinent finding (opens eyes sporadically, does not speak or respond purposefully to verbal stimulus) Skin: normal color, warm/dry Assessment and Plan A 70 yo male comes with MAT with ST depressions in leads V3 and V4 2-D echocardiogram with Dopplers: EF 40%. metoprolol 25 mg bid po Anemia, his hemoglobin upon admission was 8.5. Due to the accompanying MAT and hypoxia, patient was transfused 1 unit of packed RBCs by admitting doctor Metastatic lung cancer to liver- s/p left side lung biopsy by Dr. Hassan, Pathology report consistent with non small lung carcinoma, low grade MRI brain: significant motion abnormality, but mass that was seen by CT is not reliably visualized appreciated oncology input, no role of chemoTx, Rad Onc attempted to do palliative radiation of the chest, but due to confusion patient did not tolerate it, family decided against palliative radiation suspected health care pneumonia, obstructive PNA, with elevated WBC, cont IV levaquin, add IV zosyn, continue as per family metabolic encephalopathy sec to PNA, cancer and medications (lorazepam and morphine IV), will continue to avoid medications inducing delirium and cont IV abx with palliative care BPH--continue tamsulosin 0.4 mg by mouth every morning. appreciated palliative consult, met with family, continue comfort measures, DNR Plan was for patient to be d/jazzy to SNF with comfort measures, however given rapid decline overnight, it seems reasonable to keep him at [facility] and re-eval on Tuesday if he does not continue to decline. Long discussion with family. They would like to stop abx at this time and move to full comfort care D/C VSS, meds Morphine, ativan, etc
[2016-04-09] MEDS: LORAZEPAM INJ 0.5 MG in SYRINGE 0.75 ML IV PRN (13:40)
--- NOTE | 2016-04-09 15:14 | Hematology/Oncology Prog Note ---
Hematology/Onc Progress Note Date of Service Apr 09, 2016. Diagnoses Metastatic non-small cell lung carcinoma. Medications Medications Administered Medications (Trade) Dose Ordered Sig/Juan Alberto Route Start Time Stop Time Status Last Admin Dose Admin Sodium Chloride 250 ml @ 999 mls/hr Q16M STAT IV 04/05/16 15:10 04/05/16 15:25 DC 04/05/16 15:52 999 MLS/HR Sodium Chloride 1,000 ml @ 100 mls/hr Q10H STAT IV 04/05/16 15:10 04/05/16 20:05 DC 04/05/16 15:52 100 MLS/HR Sodium Chloride (Nss 1000ml) 1,000 ml @ 999 mls/hr Q1H1M STAT IV 04/05/16 15:54 04/05/16 16:54 DC 04/05/16 15:58 999 MLS/HR Ondansetron HCl (Zofran Inj) 4 mg NOW STAT IV 04/05/16 16:45 04/05/16 16:47 DC 04/05/16 16:56 4 MG Morphine Sulfate (MoRPHine SULFATE INJ) 2 mg NOW STAT IV 04/05/16 16:45 04/05/16 16:47 DC 04/05/16 16:56 2 MG Metoprolol Tartrate 5 mg 5 mg NOW STAT IV 04/05/16 18:43 04/05/16 18:44 DC 04/05/16 19:00 5 MG Potassium Chloride/Sodium Chloride 1,000 ml @ 100 mls/hr Q10H IV 04/05/16 21:00 04/06/16 13:47 DC 04/06/16 07:24 100 MLS/HR Ceftriaxone Sodium 1 gm/ Dextrose 50 ml @ 100 mls/hr Q24H IV 04/05/16 21:00 04/07/16 13:32 DC 04/06/16 21:17 100 MLS/HR Levofloxacin/Prmx (Levaquin / D5W/ Premixed D5W) 100 ml @ 100 mls/hr Q24H IV 04/05/16 22:00 04/09/16 13:16 DC 04/08/16 22:00 100 MLS/HR Ipratropium [place] (Atrovent 0.02% 0.5MG/2.5ML Neb) 0.5 mg Q2H PRN INH 04/05/16 19:15 05/05/16 19:14 04/08/16 22:28 0.5 MG Levalbuterol (Xopenex 1.25MG/ 0.5ML Neb) 1.25 mg Q2H PRN INH 04/05/16 19:15 05/05/16 19:14 04/08/16 22:28 1.25 MG Metoprolol Tartrate (Lopressor Iv) 5 mg Q4 IV. 04/06/16 00:00 04/06/16 13:56 DC 04/06/16 11:49 5 MG Metoprolol Tartrate (Lopressor Tab) 25 mg BID PO 04/06/16 13:45 04/09/16 13:20 DC 04/08/16 07:57 25 MG Metoprolol Tartrate (Lopressor Iv) 5 mg Q6 IV. 04/06/16 18:00 04/08/16 10:57 DC 04/08/16 05:40 5 MG Morphine Sulfate (MoRPHine SULFATE INJ) 2 mg STK-MED ONCE .ROUTE 04/06/16 14:38 04/06/16 14:39 DC 04/06/16 14:42 2 MG Dabigatran 75 mg 75 mg BID PO 04/06/16 21:00 04/08/16 10:59 DC 04/08/16 07:57 75 MG Lorazepam/Syringe (Ativan Inj/ Syringe) 0.5 ml @ 0.5 mls/min NOW STAT IV 04/07/16 02:01 04/07/16 02:02 DC 04/07/16 02:13 0.5 MLS/MIN Lorazepam 2 mg 2 mg STK-MED ONCE .ROUTE 04/07/16 02:57 04/07/16 02:58 DC 04/07/16 03:00 2 MG Lorazepam 0.5 mg/ Syringe 0.5 ml @ 0.5 mls/min NOW STAT IV 04/07/16 08:18 04/07/16 08:25 DC 04/07/16 09:16 0.5 MLS/MIN Piperacillin Sod/ Tazobactam Sod 3.375 gm/Dextrose 115 ml @ 230 mls/hr TODAY@1430 ONCE IV 04/07/16 14:30 04/07/16 14:59 DC 04/07/16 14:45 230 MLS/HR Piperacillin Sod/ Tazobactam Sod/ Dextrose (Zosyn Iv/D5 100ml) 115 ml @ 28.75 mls/ hr Q8H IV 04/07/16 20:00 04/09/16 13:16 DC 04/09/16 03:43 28.75 MLS/HR Lorazepam (Ativan Inj) 2 mg STK-MED ONCE .ROUTE 04/08/16 05:35 04/08/16 05:36 DC 04/08/16 05:41 2 MG Morphine Sulfate (Roxanol Oral Soln) 5 mg Q3H PRN PO 04/08/16 11:30 04/22/16 11:29 04/09/16 03:46 5 MG Atropine Sulfate (ATROPINE SULFATE 1% Op Soln 2 ML) 4 drops Q4H PRN OP 04/08/16 11:30 05/08/16 11:29 04/09/16 09:35 4 DROPS Scopolamine 1.5 mg 1.5 mg Q72H TD 04/09/16 09:15 05/09/16 09:14 04/09/16 09:34 1.5 MG Lorazepam/Syringe (Ativan Inj/ Syringe) 1 ml @ 1 mls/min Q1H PRN IV 04/09/16 09:15 05/09/16 09:14 04/09/16 13:40 1 MLS/MIN Subjective He remains confused and steadily declining. Review of Systems: Unable to really obtain and accurate review of systems Vital Signs Vital Signs Past 12 Hours Date Time Temp Pulse Resp B/P Pulse Ox O2 Delivery O2 Flow Rate FiO2 04/09/16 08:26 37.0 124 20 115/72 100 Nasal Cannula 3.0 04/09/16 08:25 Nasal Cannula 04/09/16 04:00 36.6 116 16 117/68 94 Physical Exam Constitutional: vitals are stable. Respiratory: Lung sounds were generally clear bilaterally Cardiovascular: Heart was RRR without significant murmur, gallops aoe rubs Gastrointestinal: No palpable hepatic or splenomegaly. The abdomen was soft with normal bowel sounds. Lymphatic system: there was no palpable peripheral lymphadenopathy Musculoskeletal System: The musculoskeletal system seemed concordant with age. Skin: The skin was negative for jaundice. Neurologic exam: Tendency toward somnolence Extremities: Negative for edema erythema Assessment & Plan Supportive care continues. He does appear to be declining fairly quickly. Fortunately pains not then a very significant issue.
[2016-04-09 16:00] VITALS: O2SAT 100
[2016-04-09] MEDS: CHECK SCOPOLAMINE PATCH PLACEMENT SCH (16:14)
[2016-04-09] MEDS: LORAZEPAM 2 MG/ML 1 ML VIAL IV PRN ×2 (16:19→19:36)
[2016-04-09] MEDS: MoRPHine SULFATE 2 MG/ML CARP IV PRN ×2 (16:24→22:26)
[2016-04-09 19:54] VITALS: BP 120/82; PULSE 53; TEMP 36.7; O2SAT 100
[2016-04-09 23:10] VITALS: BP 120/86; PULSE 118; TEMP 36.4; O2SAT 94
[2016-04-10] VITALS: O2SAT 100
[2016-04-10] MEDS: CHECK SCOPOLAMINE PATCH PLACEMENT SCH ×3 (00:07→15:37)
[2016-04-10] MEDS: MoRPHine SULFATE 5 MG/0.25 ML UDP PO PRN (02:46)
[2016-04-10] MEDS: LORAZEPAM 2 MG/ML 1 ML VIAL IV PRN ×2 (03:42→11:57)
[2016-04-10 07:42] VITALS: BP 136/75; PULSE 123; TEMP 36.4; O2SAT 100
--- NOTE | 2016-04-10 10:36 | Progress Note ---
Subjective Date of Service: Apr 10, 2016. Subjective Family is not present this AM. Nursing reports no major change overnight. Still with twitching episodes that the ativan seems to help. Pain is controlled. Still no meaningful interactions. Unable to obtain ROS due to pt's mentation status. Problem List Medical Problems: (1) Dehydration Status: Acute (2) Lung cancer Status: Acute (3) Rapid atrial fibrillation Status: Acute Objective Vital Signs Date Time Temp Pulse Resp B/P Pulse Ox O2 Delivery O2 Flow Rate FiO2 04/10/16 08:10 Nasal Cannula 2.0 04/10/16 07:42 36.4 123 14 136/75 100 Nasal Cannula 3.0 04/10/16 00:00 100 Nasal Cannula 3.0 04/09/16 23:10 36.4 118 18 120/86 94 Nasal Cannula 3.0 04/09/16 19:54 36.7 53 24 120/82 100 Nasal Cannula 3.0 04/09/16 16:00 100 Nasal Cannula 3.0 Physical Exam General Appearance: WD/WN, no apparent distress Respiratory/Chest: no respiratory distress Cardiovascular: no edema Neurologic/Psychiatric: + pertinent finding (occasional upper body spasms, does not appear in pain, does not respond to verbal stimuli) Skin: + pallor Assessment and Plan A 70 yo male comes with MAT with ST depressions in leads V3 and V4 2-D echocardiogram with Dopplers: EF 40%. metoprolol 25 mg bid po Anemia, his hemoglobin upon admission was 8.5. Due to the accompanying MAT and hypoxia, patient was transfused 1 unit of packed RBCs by admitting doctor Metastatic lung cancer to liver- s/p left side lung biopsy by Dr. Hassan, Pathology report consistent with non small lung carcinoma, low grade MRI brain: significant motion abnormality, but mass that was seen by CT is not reliably visualized appreciated oncology input, no role of chemoTx, Rad Onc attempted to do palliative radiation of the chest, but due to confusion patient did not tolerate it, family decided against palliative radiation suspected health care pneumonia, obstructive PNA, with elevated WBC, cont IV levaquin, add IV zosyn, continue as per family metabolic encephalopathy sec to PNA, cancer and medications (lorazepam and morphine IV), will continue to avoid medications inducing delirium and cont IV abx with palliative care BPH--continue tamsulosin 0.4 mg by mouth every morning. appreciated palliative consult, met with family, continue comfort measures, DNR Plan was for patient to be d/jazzy to SNF with comfort measures, however given rapid decline it seems reasonable to keep him at [facility] and re-eval on Tuesday if pt stabilizes after discussion with family on Tuesday. Morphine, ativan, etc
[2016-04-10] MEDS: MoRPHine SULFATE 2 MG/ML CARP IV PRN (11:39)
[2016-04-10] MEDS ORDERED: MoRPHine SULF/NSS 250MG/250ML 250 ML IV PRN (12:00)
[2016-04-10 16:00] VITALS: O2SAT 100
[2016-04-10] MEDS: LORAZEPAM INJ 0.5 MG in SYRINGE 0.75 ML IV PRN (20:46)
[2016-04-10] MEDS: ATROPINE SULFATE 1% OP SOLN 2 ML BTL OP PRN (20:48)
[2016-04-10 23:14] VITALS: BP 126/70; PULSE 92; TEMP 36.5; O2SAT 100
[2016-04-11] MEDS: CHECK SCOPOLAMINE PATCH PLACEMENT SCH ×4 (00:37→23:41)
[2016-04-11] MEDS: ATROPINE SULFATE 1% OP SOLN 2 ML BTL OP PRN ×5 (04:29→23:41)
[2016-04-11] MEDS: MoRPHine SULFATE 5 MG/0.25 ML UDP PO PRN (04:32)
[2016-04-11] MEDS: LORAZEPAM INJ 0.5 MG in SYRINGE 0.75 ML IV PRN (04:50)
[2016-04-11] MEDS ORDERED: NURSING DECISION MEDICATION ORDER SCH (05:00)
--- NOTE | 2016-04-11 09:14 | Hematology/Oncology Prog Note ---
Hematology/Onc Progress Note Date of Service Apr 11, 2016. Diagnoses Metastatic non-small cell lung carcinoma. Medications Medications Administered Medications (Trade) Dose Ordered Sig/Juan Alberto Route Start Time Stop Time Status Last Admin Dose Admin Sodium Chloride 250 ml @ 999 mls/hr Q16M STAT IV 04/05/16 15:10 04/05/16 15:25 DC 04/05/16 15:52 999 MLS/HR Sodium Chloride 1,000 ml @ 100 mls/hr Q10H STAT IV 04/05/16 15:10 04/05/16 20:05 DC 04/05/16 15:52 100 MLS/HR Sodium Chloride (Nss 1000ml) 1,000 ml @ 999 mls/hr Q1H1M STAT IV 04/05/16 15:54 04/05/16 16:54 DC 04/05/16 15:58 999 MLS/HR Ondansetron HCl (Zofran Inj) 4 mg NOW STAT IV 04/05/16 16:45 04/05/16 16:47 DC 04/05/16 16:56 4 MG Morphine Sulfate (MoRPHine SULFATE INJ) 2 mg NOW STAT IV 04/05/16 16:45 04/05/16 16:47 DC 04/05/16 16:56 2 MG Metoprolol Tartrate 5 mg 5 mg NOW STAT IV 04/05/16 18:43 04/05/16 18:44 DC 04/05/16 19:00 5 MG Potassium Chloride/Sodium Chloride 1,000 ml @ 100 mls/hr Q10H IV 04/05/16 21:00 04/06/16 13:47 DC 04/06/16 07:24 100 MLS/HR Ceftriaxone Sodium 1 gm/ Dextrose 50 ml @ 100 mls/hr Q24H IV 04/05/16 21:00 04/07/16 13:32 DC 04/06/16 21:17 100 MLS/HR Levofloxacin/Prmx (Levaquin / D5W/ Premixed D5W) 100 ml @ 100 mls/hr Q24H IV 04/05/16 22:00 04/09/16 13:16 DC 04/08/16 22:00 100 MLS/HR Ipratropium [place] (Atrovent 0.02% 0.5MG/2.5ML Neb) 0.5 mg Q2H PRN INH 04/05/16 19:15 05/05/16 19:14 04/08/16 22:28 0.5 MG Levalbuterol (Xopenex 1.25MG/ 0.5ML Neb) 1.25 mg Q2H PRN INH 04/05/16 19:15 05/05/16 19:14 04/08/16 22:28 1.25 MG Metoprolol Tartrate (Lopressor Iv) 5 mg Q4 IV. 04/06/16 00:00 04/06/16 13:56 DC 04/06/16 11:49 5 MG Metoprolol Tartrate (Lopressor Tab) 25 mg BID PO 04/06/16 13:45 04/09/16 13:20 DC 04/08/16 07:57 25 MG Metoprolol Tartrate (Lopressor Iv) 5 mg Q6 IV. 04/06/16 18:00 04/08/16 10:57 DC 04/08/16 05:40 5 MG Morphine Sulfate (MoRPHine SULFATE INJ) 2 mg STK-MED ONCE .ROUTE 04/06/16 14:38 04/06/16 14:39 DC 04/06/16 14:42 2 MG Dabigatran 75 mg 75 mg BID PO 04/06/16 21:00 04/08/16 10:59 DC 04/08/16 07:57 75 MG Lorazepam/Syringe (Ativan Inj/ Syringe) 0.5 ml @ 0.5 mls/min NOW STAT IV 04/07/16 02:01 04/07/16 02:02 DC 04/07/16 02:13 0.5 MLS/MIN Lorazepam 2 mg 2 mg STK-MED ONCE .ROUTE 04/07/16 02:57 04/07/16 02:58 DC 04/07/16 03:00 2 MG Lorazepam 0.5 mg/ Syringe 0.5 ml @ 0.5 mls/min NOW STAT IV 04/07/16 08:18 04/07/16 08:25 DC 04/07/16 09:16 0.5 MLS/MIN Piperacillin Sod/ Tazobactam Sod 3.375 gm/Dextrose 115 ml @ 230 mls/hr TODAY@1430 ONCE IV 04/07/16 14:30 04/07/16 14:59 DC 04/07/16 14:45 230 MLS/HR Piperacillin Sod/ Tazobactam Sod/ Dextrose (Zosyn Iv/D5 100ml) 115 ml @ 28.75 mls/ hr Q8H IV 04/07/16 20:00 04/09/16 13:16 DC 04/09/16 03:43 28.75 MLS/HR Lorazepam (Ativan Inj) 2 mg STK-MED ONCE .ROUTE 04/08/16 05:35 04/08/16 05:36 DC 04/08/16 05:41 2 MG Morphine Sulfate (Roxanol Oral Soln) 5 mg Q3H PRN PO 04/08/16 11:30 04/22/16 11:29 04/11/16 04:32 5 MG Atropine Sulfate (ATROPINE SULFATE 1% Op Soln 2 ML) 4 drops Q4H PRN OP 04/08/16 11:30 05/08/16 11:29 04/11/16 07:56 4 DROPS Scopolamine (Transderm-Scop Patch) 1.5 mg Q72H TD 04/09/16 09:15 05/09/16 09:14 04/09/16 09:34 1.5 MG Miscellaneous Information 1 ea 1 ea QS N/A 04/09/16 16:00 05/09/16 15:59 04/11/16 07:53 1 EA Lorazepam/Syringe (Ativan Inj/ Syringe) 1 ml @ 1 mls/min Q1H PRN IV 04/09/16 09:15 05/09/16 09:14 04/11/16 04:50 1 MLS/MIN Lorazepam (Ativan Inj) 0.5 mg Q1H PRN IV 04/09/16 09:15 05/09/16 09:14 04/10/16 11:57 0.5 MG Morphine Sulfate 1 mg 1 mg Q2H PRN IV 04/09/16 13:15 04/23/16 13:14 04/10/16 11:39 1 MG Morphine Sulfate/ Dextrose (Morphine Sulf/ Nss 250MG/250ML) 250 ml @ 1.5 mls/hr Q24H PRN IV 04/10/16 12:00 04/24/16 11:59 04/10/16 13:27 1 MLS/HR Subjective Essentially unresponsive now. Review of Systems: Not able to obtain Vital Signs Vital Signs Past 12 Hours Date Time Temp Pulse Resp B/P Pulse Ox O2 Delivery O2 Flow Rate FiO2 04/11/16 00:44 Nasal Cannula 3.0 04/10/16 23:14 36.5 92 12 126/70 100 Nasal Cannula 3.0 Physical Exam Constitutional: vitals are stable. He is unresponsive. Breathing with long periods of apnea Eyes: Eyes are DORIAN EOMI without conjuctival erythema or icterus. Respiratory: Lung sounds were generally decreased bilaterally Cardiovascular: Heart was RRR without significant murmur, gallops aoe rubs Gastrointestinal: No palpable hepatic or splenomegaly. The abdomen was soft with normal bowel sounds. Lymphatic system: there was no palpable peripheral lymphadenopathy Musculoskeletal System: The musculoskeletal system seemed concordant with age. Skin: The skin was negative for jaundice. Neurologic exam: Essentially unresponsive without any focal definite signs Psychiatric exam: Not able to be obtained Extremities: Negative for edema or erythema Assessment & Plan Supportive care continues. appears fairly imminent. We'll sign off as a service. Please all hesitate to reconsult if we can be of any help.
--- NOTE | 2016-04-11 10:53 | Progress Note ---
Subjective Date of Service: Apr 11, 2016. Subjective Pt evaluation today including: conversation w/ patient, chart review, lab review Pt is stable. Nursing reports frequent upper airway sounds, but that suctioning agitates the pt more than the congestion. Has been comfortable. Family is not present today. I did meet with pt's son yesterday afternoon and he was concerned that pt has been more agitated. Discussed morphine drip and he agreed with that if ongoing agitation. Unable to obtain full ROS due to mentation. Problem List Medical Problems: (1) Dehydration Status: Acute (2) Lung cancer Status: Acute (3) Rapid atrial fibrillation Status: Acute Objective Vital Signs Date Time Temp Pulse Resp B/P Pulse Ox O2 Delivery O2 Flow Rate FiO2 04/11/16 00:44 Nasal Cannula 3.0 04/10/16 23:14 36.5 92 12 126/70 100 Nasal Cannula 3.0 04/10/16 21:04 Nasal Cannula 3.0 04/10/16 16:00 100 Nasal Cannula 2.0 Physical Exam Comments: General Appearance: WD/WN, no apparent distress Respiratory/Chest: no respiratory distress Cardiovascular: no edema Neurologic/Psychiatric: + pertinent finding (no upper body spasm due exam today , does not appear in pain, does not respond to verbal stimuli) Skin: + pallor Assessment and Plan A 70 yo male comes with MAT with ST depressions in leads V3 and V4 2-D echocardiogram with Dopplers: EF 40%. metoprolol 25 mg bid po Anemia, his hemoglobin upon admission was 8.5. Due to the accompanying MAT and hypoxia, patient was transfused 1 unit of packed RBCs by admitting doctor Metastatic lung cancer to liver- s/p left side lung biopsy by Dr. Hassan, Pathology report consistent with non small lung carcinoma, low grade MRI brain: significant motion abnormality, but mass that was seen by CT is not reliably visualized appreciated oncology input, no role of chemoTx, Rad Onc attempted to do palliative radiation of the chest, but due to confusion patient did not tolerate it, family decided against palliative radiation suspected health care pneumonia, obstructive PNA, with elevated WBC, cont IV levaquin, add IV zosyn, continue as per family metabolic encephalopathy sec to PNA, cancer and medications (lorazepam and morphine IV), will continue to avoid medications inducing delirium and cont IV abx with palliative care BPH--continue tamsulosin 0.4 mg by mouth every morning. appreciated palliative consult, met with family, continue comfort measures, DNR Plan was for patient to be d/jazzy to SNF with comfort measures, however given rapid decline it seems reasonable to keep him at [facility] and re-eval on Tuesday if pt stabilizes after discussion with family on Tuesday. Morphine, ativan, etc
[2016-04-11 16:30] VITALS: O2SAT 92
[2016-04-12] VITALS: O2SAT 97
[2016-04-12] MEDS: SCOPOLAMINE 1.5 MG TDSY TD SCH (08:25)
[2016-04-12] MEDS: CHECK SCOPOLAMINE PATCH PLACEMENT SCH ×2 (08:25→16:28)
--- NOTE | 2016-04-12 11:36 | Progress Note ---
Subjective Subjective Date of Service: Apr 12, 2016. Pt evaluation today including: conversation w/ family, physical exam, chart review, review of studies, review of inpatient medication list Notes: ROS can`t be obtained due to patient obtundation Problem List Medical Problems: (1) Dehydration Status: Acute (2) Lung cancer Status: Acute (3) Rapid atrial fibrillation Status: Acute Physical Exam Vital Signs Vital Signs Past 24 Hours: Date Time Temp Pulse Resp B/P Pulse Ox O2 Delivery O2 Flow Rate FiO2 04/12/16 11:21 Nasal Cannula 3.0 04/12/16 00:00 97 Nasal Cannula 3.0 04/11/16 16:30 92 Nasal Cannula 3.0 04/11/16 11:51 Nasal Cannula 3.0 Physical Exam: General Appearance: WD/WN, no apparent distress ENT: pharynx normal Neck: supple, no JVD Respiratory/Chest: chest non-tender, no respiratory distress Cardiovascular: regular rate, rhythm, no gallop Abdomen: normal bowel sounds, soft Neurologic/Psychiatric: + pertinent finding (obtunded) Medications Medications: Current Inpatient Medications Medications (Trade) Dose Ordered Sig/Juan Alberto Route Start Time Stop Time Status Last Admin Dose Admin Nitroglycerin (Nitrostat Tab) 0.4 mg UD PRN SL 04/05/16 18:45 05/05/16 18:44 Ondansetron HCl 4 mg 4 mg Q6H PRN IV 04/05/16 18:45 05/05/16 18:44 Acetaminophen (Ofirmev Iv) 100 ml @ 400 mls/hr Q8H PRN IV 04/05/16 18:45 05/05/16 18:44 Ipratropium [place] (Atrovent 0.02% 0.5MG/2.5ML Neb) 0.5 mg Q2H PRN INH 04/05/16 19:15 05/05/16 19:14 04/08/16 22:28 0.5 MG Levalbuterol (Xopenex 1.25MG/ 0.5ML Neb) 1.25 mg Q2H PRN INH 04/05/16 19:15 05/05/16 19:14 04/08/16 22:28 1.25 MG Morphine Sulfate (Roxanol Oral Soln) 5 mg Q3H PRN PO 04/08/16 11:30 04/22/16 11:29 04/11/16 04:32 5 MG Atropine Sulfate (ATROPINE SULFATE 1% Op Soln 2 ML) 4 drops Q4H PRN OP 04/08/16 11:30 05/08/16 11:29 04/11/16 23:41 4 DROPS Scopolamine (Transderm-Scop Patch) 1.5 mg Q72H TD 04/09/16 09:15 05/09/16 09:14 04/12/16 08:25 1.5 MG Miscellaneous (Remove Transderm-Scop Patch) 1 ea Q72H N/A 04/12/16 09:15 05/12/16 09:14 04/12/16 08:25 1 EA Miscellaneous Information 1 ea 1 ea QS N/A 04/09/16 16:00 05/09/16 15:59 04/12/16 08:25 1 EA Lorazepam/Syringe (Ativan Inj/ Syringe) 1 ml @ 1 mls/min Q1H PRN IV 04/09/16 09:15 05/09/16 09:14 04/11/16 04:50 1 MLS/MIN Lorazepam (Ativan Inj) 0.5 mg Q1H PRN IV 04/09/16 09:15 05/09/16 09:14 04/10/16 11:57 0.5 MG Morphine Sulfate 1 mg 1 mg Q2H PRN IV 04/09/16 13:15 04/23/16 13:14 04/10/16 11:39 1 MG Morphine Sulfate/ Dextrose (Morphine Sulf/ Nss 250MG/250ML) 250 ml @ 1.5 mls/hr Q24H PRN IV 04/10/16 12:00 04/24/16 11:59 04/10/16 13:27 1 MLS/HR Assessment and Plan A 70 yo male comes with MAT with ST depressions in leads V3 and V4 2-D echocardiogram with Dopplers: EF 40%. Anemia, his hemoglobin upon admission was 8.5. Due to the accompanying MAT and hypoxia, patient was transfused 1 unit of packed RBCs by admitting doctor Metastatic lung cancer to liver- s/p left side lung biopsy by Dr. Hassan, Pathology report consistent with non small lung carcinoma, low grade MRI brain: significant motion abnormality, but mass that was seen by CT is not reliably visualized appreciated oncology input, no role of chemoTx, Rad Onc attempted to do palliative radiation of the chest, but due to confusion patient did not tolerate it, family decided against palliative radiation suspected health care pneumonia, obstructive PNA, with elevated WBC BPH--continue tamsulosin 0.4 mg by mouth every morning. appreciated palliative consult, met with family, continue comfort measures, DNR
[2016-04-12] MEDS: ATROPINE SULFATE 1% OP SOLN 2 ML BTL OP PRN ×2 (16:30→22:43)
[2016-04-12] MEDS: LORAZEPAM INJ 0.5 MG in SYRINGE 0.75 ML IV PRN (22:42)
[2016-04-13] MEDS: CHECK SCOPOLAMINE PATCH PLACEMENT SCH ×3 (00:07→15:30)
--- NOTE | 2016-04-13 11:54 | Progress Note ---
Subjective Subjective Date of Service: Apr 13, 2016. Pt evaluation today including: physical exam, chart review, review of studies, review of inpatient medication list Notes: ROS cant be obtained due to patient obtundation Problem List Medical Problems: (1) Dehydration Status: Acute (2) Lung cancer Status: Acute (3) Rapid atrial fibrillation Status: Acute Physical Exam Vital Signs Vital Signs Past 24 Hours: Date Time Temp Pulse Resp B/P Pulse Ox O2 Delivery O2 Flow Rate FiO2 04/13/16 08:00 Nasal Cannula 4.0 04/13/16 00:00 Nasal Cannula 3.0 04/12/16 16:05 Nasal Cannula 3.0 Physical Exam: General Appearance: WD/WN, no apparent distress Eyes: bilateral eyes normal inspection Neck: supple Respiratory/Chest: + rhonchi Cardiovascular: no murmur Abdomen: normal bowel sounds Extremities: no pedal edema Neurologic/Psychiatric: + pertinent finding (obtunded) Medications Medications: Current Inpatient Medications Medications (Trade) Dose Ordered Sig/Juan Alberto Route Start Time Stop Time Status Last Admin Dose Admin Nitroglycerin (Nitrostat Tab) 0.4 mg UD PRN SL 04/05/16 18:45 05/05/16 18:44 Ondansetron HCl 4 mg 4 mg Q6H PRN IV 04/05/16 18:45 05/05/16 18:44 Acetaminophen (Ofirmev Iv) 100 ml @ 400 mls/hr Q8H PRN IV 04/05/16 18:45 05/05/16 18:44 Ipratropium [place] (Atrovent 0.02% 0.5MG/2.5ML Neb) 0.5 mg Q2H PRN INH 04/05/16 19:15 05/05/16 19:14 04/08/16 22:28 0.5 MG Levalbuterol (Xopenex 1.25MG/ 0.5ML Neb) 1.25 mg Q2H PRN INH 04/05/16 19:15 05/05/16 19:14 04/08/16 22:28 1.25 MG Morphine Sulfate (Roxanol Oral Soln) 5 mg Q3H PRN PO 04/08/16 11:30 04/22/16 11:29 04/11/16 04:32 5 MG Atropine Sulfate (ATROPINE SULFATE 1% Op Soln 2 ML) 4 drops Q4H PRN OP 04/08/16 11:30 05/08/16 11:29 04/12/16 22:43 4 DROPS Scopolamine (Transderm-Scop Patch) 1.5 mg Q72H TD 04/09/16 09:15 05/09/16 09:14 04/12/16 08:25 1.5 MG Miscellaneous (Remove Transderm-Scop Patch) 1 ea Q72H N/A 04/12/16 09:15 05/12/16 09:14 04/12/16 08:25 1 EA Miscellaneous Information 1 ea 1 ea QS N/A 04/09/16 16:00 05/09/16 15:59 04/13/16 07:56 1 EA Lorazepam/Syringe (Ativan Inj/ Syringe) 1 ml @ 1 mls/min Q1H PRN IV 04/09/16 09:15 05/09/16 09:14 04/12/16 22:42 1 MLS/MIN Lorazepam (Ativan Inj) 0.5 mg Q1H PRN IV 04/09/16 09:15 05/09/16 09:14 04/10/16 11:57 0.5 MG Morphine Sulfate 1 mg 1 mg Q2H PRN IV 04/09/16 13:15 04/23/16 13:14 04/10/16 11:39 1 MG Morphine Sulfate/ Dextrose (Morphine Sulf/ Nss 250MG/250ML) 250 ml @ 1.5 mls/hr Q24H PRN IV 04/10/16 12:00 04/24/16 11:59 04/10/16 13:27 1 MLS/HR Assessment and Plan A 70 yo male comes with MAT with ST depressions in leads V3 and V4 2-D echocardiogram with Dopplers: EF 40%. Anemia, his hemoglobin upon admission was 8.5. Due to the accompanying MAT and hypoxia, patient was transfused 1 unit of packed RBCs by admitting doctor Metastatic lung cancer to liver- s/p left side lung biopsy by Dr. Hassan, Pathology report consistent with non small lung carcinoma, low grade MRI brain: significant motion abnormality, but mass that was seen by CT is not reliably visualized appreciated oncology input, no role of chemoTx, Rad Onc attempted to do palliative radiation of the chest, but due to confusion patient did not tolerate it, family decided against palliative radiation suspected health care pneumonia, obstructive PNA, with elevated WBC, completed antibiotics, now on comfort measures appreciated palliative consult, met with family, continue comfort measures, DNR , cont IV morphine drip
[2016-04-13] MEDS: ATROPINE SULFATE 1% OP SOLN 2 ML BTL OP PRN (15:29)
--- NOTE | 2016-04-14 10:35 | Death Pronouncement Note ---
Pronouncement Note Date & Time of Apr 13, 2016. 9:38 pm Pronouncement At time of pronouncement the patients pupils were fixed and dilated, there was no spontaneous respiratory effort, no palpable pulse, no audible heart tones, and no response to pain or voice.
--- NOTE | 2016-04-14 10:37 | Death Summary ---
Summary of Admission Date Apr 05, 2016 at 19:03 Date & Time of Apr 13, 2016. 9:38 pm Cause of respiratory failure Secondary Diagnoses metastatic lung cancer Hospital Course A 70 yo male comes with MAT with ST depressions in leads V3 and V4 2-D echocardiogram with Dopplers: EF 40%. Anemia, his hemoglobin upon admission was 8.5. Due to the accompanying MAT and hypoxia, patient was transfused 1 unit of packed RBCs by admitting doctor Metastatic lung cancer to liver- s/p left side lung biopsy by Dr. Hassan, Pathology report consistent with non small lung carcinoma, low grade MRI brain: significant motion abnormality, but mass that was seen by CT is not reliably visualized appreciated oncology input, no role of chemoTx, Rad Onc attempted to do palliative radiation of the chest, but due to confusion patient did not tolerate it, family decided against palliative radiation suspected health care pneumonia, obstructive PNA, with elevated WBC, completed antibiotics appreciated palliative consult, met with family, was made DNR and put on comfort measures, received IV morphine drip patient was pronounced on Apr 13, 2016 at 9:38 pm. family notified
== END 2016-04-13 23:00 | disposition expired | DRG 180 ==
LOC: ENRESERVDT → ENRESERVTM → C.EDB 14:39 → C.MED 19:03 → C.4E 04-08 13:19
PROVIDERS: ADMIT Hospitalist; ATTEND Hospitalist
PROC: 0BBC3ZX Excision of Right Upper Lung Lobe, Percutaneous Approach, Diagnostic (ICD-10-PCS; principal; 2016-04-06)
DX: C34.11 Malignant neoplasm of upper lobe, right bronchus or lung (principal); G93.41 Metabolic encephalopathy; J18.9 Pneumonia, unspecified organism; C78.7 Secondary malignant neoplasm of liver and intrahepatic bile duct; C79.31 Secondary malignant neoplasm of brain; I47.1 Supraventricular tachycardia; I48.2 Chronic atrial fibrillation; R09.02 Hypoxemia; J44.9 Chronic obstructive pulmonary disease, unspecified; D64.9 Anemia, unspecified; I25.10 Atherosclerotic heart disease of native coronary artery without angina pectoris; I50.9 Heart failure, unspecified; I25.2 Old myocardial infarction; N40.0 Benign prostatic hyperplasia without lower urinary tract symptoms; E86.0 Dehydration; T42.4X5A Adverse effect of benzodiazepines, initial encounter; T40.2X5A Adverse effect of other opioids, initial encounter; Y92.239 Unspecified place in hospital as the place of occurrence of the external cause; Y95 Nosocomial condition; F10.21 Alcohol dependence, in remission; D72.829 Elevated white blood cell count, unspecified; I11.0 Hypertensive heart disease with heart failure; R41.0 Disorientation, unspecified; Z66 Do not resuscitate; Z87.891 Personal history of nicotine dependence; Z51.5 Encounter for palliative care; Z79.899 Other long term (current) drug therapy; Z79.891 Long term (current) use of opiate analgesic; Z86.718 Personal history of other venous thrombosis and embolism